=== PATIENT | female | born 1995 | race Caucasian/White ===

== ENCOUNTER 2023-07-02 11:28 | Outpatient (CLI) | payer OTHER, SELFPAY ==
--- NOTE | ~2023-07-02 | XR_ITS ---
EXAMINATION: XR hysterosalpingogram DATE: 07/02/2023 12:18 INDICATION: Infertility. TECHNIQUE: Fluoroscopy was performed by the radiologist during contrast infusion into the endometrial cavity of the uterus by the primary physician. Fluoroscopy exposure time was 0.4 minutes. The total number of images was 5. FINDINGS: The intrauterine cavity is normal in morphology. The fallopian tubes are normal in caliber. There is normal free intraperitoneal spillage of contrast on either side. IMPRESSION: 1. Normal hysterosalpingogram.. Reviewed, dictated and finalized at location A.
== END 2023-07-02 11:29 | disposition home or self-care (01) ==
LOC: ANHIMG 11:43
PROVIDERS: Visit Provider Obstetrics & Gynecology
DX: N97.9 Female infertility, unspecified (principal)
CPT/HCPCS: 58340; 74740; Q9966

== ENCOUNTER 2023-12-22 16:00 | Outpatient (CLI) | payer OTHER, SELFPAY ==
[2023-12-22 17:27] LABS: Beta HCG Quantitative 5.29 mIU/ML
[2023-12-26 07:49] LABS: Progesterone 0.5 ng/mL (***)
== END 2023-12-22 16:01 | disposition home or self-care (01) ==
LOC: ANHLAB 16:02
PROVIDERS: Visit Provider Obstetrics & Gynecology
DX: O20.0 Threatened abortion (principal)
CPT/HCPCS: 36415; 84144; 84702

== ENCOUNTER 2023-12-24 09:32 | Outpatient (CLI) | payer OTHER, SELFPAY ==
[2023-12-24 10:44] LABS: Beta HCG Quantitative < 2.39 mIU/ML
== END 2023-12-24 09:33 | disposition home or self-care (01) ==
LOC: ANHLAB 09:34
PROVIDERS: Visit Provider Obstetrics & Gynecology
DX: O20.0 Threatened abortion (principal); Z3A.00 Weeks of gestation of pregnancy not specified
CPT/HCPCS: 36415; 84702

== ENCOUNTER 2024-06-16 15:27 | Outpatient (CLI) | payer OTHER, SELFPAY ==
[2024-06-16 17:00] LABS: Thyroid Stimulating Hormone 0.908 uIU/mL (0.465-4.680)
[2024-06-23 16:38] LABS: Anti Mullerian Hormone,Female 3.58 ng/mL (0.69-13.39)
== END 2024-06-16 15:28 | disposition home or self-care (01) ==
PROVIDERS: PCP Emergency Medicine
DX: N96 Recurrent pregnancy loss (principal); Z13.29 Encounter for screening for other suspected endocrine disorder
CPT/HCPCS: 36415; 84443; 86146

== ENCOUNTER 2025-04-06 00:20 | Day surgery (SDC) | payer OTHER, SELFPAY ==
[2025-03-27 10:18] VITALS: BMI 21.9
--- NOTE | 2025-03-27 10:25 | PC.NURSE ---
Report to the Outpatient Waiting Room, entrance under the green pavilion located off [facility], at time _0730_ on date _[id number]_. Planned Procedure Time: _0930_. Time changes happen often and if your time is changed the preop area will call you the afternoon before. - You and your visitor will be asked to self-screen and do not enter if you have any COVID symptoms. Please call surgeon if you need to reschedule. - A mask is optional within the hospital at this time. Patients may have clear liquids (water, carbonated beverages, clear teas, apple juice) until 3 hours prior to surgery with a maximum of 20 ounces. - No food from midnight until time of surgery and no smoking, or chewing tobacco (or any form of nicotine). No chewing gum, candy or mints. Take only the following medications with a SIP of water on the morning of surgery: __None___ DO NOT STOP ANY OF YOUR OTHER PRESCRIPTION MEDICATIONS PRIOR TO SURGERY EXCEPT THE FOLLOWING Hold all vitamins and supplements for 3 days per anesthesiologist. Medications to discontinue per physician Date to take last dose Please no make-up, nail cymro, hairspray, perfume, deodorant, or body powder the day of surgery. No jewelry (including any body piercings) or valuables the day of surgery, leave them at home. Please take a shower or bath the night before, or the morning of, surgery with an antibacterial soap. Wear comfortable, loose fitting clothing. - Jewelry must be removed prior to entering the operating room. Rings and piercings that are not removed may be cut off. - The hospital will not accept responsibility for valuables. - Please leave all valuables, including medications, at home the day of surgery. If you are going home after surgery, a licensed class a regional truck driver must drive you home. - NO public transportation without another adult if you receive anesthesia. - We recommend that an adult stay with you for 24 hours following discharge. - We also recommend that you do not drive, make important decision, drink alcoholic beverages, or take any drugs that were not prescribed by your health care provider for at least 24 hours after your discharge time. Follow any additional instructions given to you from your surgeon. Telephone instructions given to __gie__and asked if any additional questions and then verbalized understanding. Patient advised to call surgeon office or pre surgery nurse liaison [phone] if any additional questions.
[2025-04-06] VITALS (7 sets, daily range): BP systolic 106–115; BP diastolic 70–83; PULSE 67–94; RESP 11–14; TEMP 36.3–36.6; O2SAT 99–100
--- OUTSIDE RECORDS SUMMARY | 2025-04-06 00:22 | XMS_ITS | Clinical Summary ---
Author Organization [facility] Address [address] [place] [address] Care Team Providers Care Oracle Analyst Name Role Phone Unavailable Primary Care Provider Unavailabl e Social History Tobacco Use Types Packs/Day Years Used Date Smoking Tobacco: Never Assessed Comments Unknown Sex and Gender Information Value Date Recorded Sex Assigned at Not on file Legal Sex Female 12:44 PM SEAMAN OFFICER Gender Identity Not on file Sexual Orientation Not on file Plan of Treatment Health Maintenance Due Date Last Done Comments Hepatitis C Virus (HCV) Screening 1996 TdaP Immunization 1996 Hepatitis B Immunization (1 of 3 - 19+ 3-dose series) 2015 Pap Smear 2017 Influenza Immunization (#1) 2024 SARS-COV-2 Immunization ( season) 2024 Respiratory Syncytial Virus (RSV) Immunization (Adult) (1 - 1-dose 75+ series) 2071 Meningococcal Immunization (ACWY) Aged Out No longer eligible based on patient's age to complete this topic Pneumococcal Immunization Combined Aged Out No longer eligible based on patient's age to complete this topic Rotavirus Immunization Aged Out No lo nger eligible based on patient's age to complete this topic Insurance [employer] on file
--- OUTSIDE RECORDS SUMMARY | 2025-04-06 00:22 | XMS_ITS | Encounter Summary ---
Author Organization [facility] Address 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
--- OUTSIDE RECORDS SUMMARY | 2025-04-06 00:22 | XMS_ITS | Encounter Summary ---
Author Organization [facility] Address [address] [place] [address] Care Team Providers Care Web User Experience Strategist Name Role Phone Bruce Brito DO Primary Care Provider [phone] Encounter Details Date Type Department Care Team (Late st Contact Info) Description 09/22/1998 Outpatient Historical [facility] Pediatric[facility] [place] [address] [facility] [place] [address] Spenser Gaytan MD NO ADDRESS ON FILE Social History Tobacco Use Types Packs/Day Years Used Date Smoking Tobacco: Never Assessed Comments Unknown Sex and Gender Information Value Date Recorded Sex Assigned at Not on file 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
--- OUTSIDE RECORDS SUMMARY | 2025-04-06 00:22 | XMS_ITS | Clinical Summary ---
Author Organization [employer] [facility] Address [address] [place] [address] [place] [address] Phone Care Team Providers Care Chemist Assistant Name Role Phone BritoBruce Cheri FRAIRE Primary Care Provider [phone] Allergies No known active allergies Medications Lo Loestrin Fe 1 mg-10 mcg (24)/10 mcg (2) Tablet per tablet TAKE 1 TABLET BY MOUTH DAILY 28 Tablet 0 Active White- Dihydroergotamine 10/Caffeine 30 mg capsule compoundIndications:C hronic migraine Take 1 capsule by mouth three times daily with food as needed for migraine. Limit use to 2 days per week. 24 Capsule 11/09/2020 2:53 PM FARM MACHINE TENDER 0 Active Active Problems Problem Noted Date Diagnosed Date Gastroesophageal reflux disease 03/12/2018 Migraine 08/14/2015 Immunizations Immunization Administration Dates Next Due (ADACEL/BOOSTRIX)(10 YR UP) TDAP VACCINE, 0.5ML, IM 07/30/2016 (GARDASIL 9)(9-45 YRS) HUMAN PAPILLOMAVIRUS VACCINE, TYPES 6, 11, 16, 18, 31, 33, 45, 52, 58, NONAVALENT (9VHPV), 2 OR 3 DOSE, IM 10/19/2019 (HAVRIX/VAQTA)(19 YRS UP) HE PATITIS A VACCINE ADULT DOSAGE 1 ML IMM 10/19/2019 (INFANRIX)(6 WKS-6 YRS) DIPT HERIA, TETANUS TOXOIDS, AND ACCELLULAR PERTUSSIS VACCINE (DTAP), 0.5 ML IM 02/21/1998,02/16/1997,1996,09/27 (M-M-R II/PRIORIX)(12 MO UP) MEASLES, MUMPS AND RUBELLA VIRUS VACCINE, 0.5 ML IM/SUBCUT 01/16/2017,01/12/2017(Deferred: Other (See comments) - Patient going to pharmacy),01/31/1998 (VARIVAX)(12 MOS UP)VARICELL A VIRUS VACCINE (PF) 0.5 ML, SUB CUT 01/31/1998 HIB, Unspecified Formulation 02/21/1998, 02/16/1997,1996,09/27 Hepatitis B Vaccine 02/21/1998,1996,1995 INFLUENZA VACCINE QUADRIVALE NT 6 MOS UP PF IM 09/07/2019 Influenza Seasonal Unspecifi ed Formulation IM 07/30/2016,08/27/2015 Meningococcal ACWY Vaccine, Unspecified Formulation 01/16/2017 Poliovirus Vaccine Live Oral 02/16/1997,12/13/18 97,1996 Skin Test TB 07/08/2017 Family History Medical History Relation Name Comments Hypertension Father Michael Horner Alzheimer's Disease Maternal Grandfather Nii Ramos Parkinson's Disease Maternal Grandfather Nii Ramos Migraines Maternal Grandmother Grandma Migraines Mother Kailee Horner Diabetes Paternal Grandfather Siri Migraines Sister Tessa Horner Breast Cancer Neg Hx Colon Cancer Neg Hx Melanoma Neg Hx Ovarian Cancer Neg Hx Relation Name Status Comments Father Michael Horner Alive Maternal Grandfather Nii Ramos Maternal Grandmother Grandma Mother Kailee Horner Alive Paternal Grandfather Siri Sister Tessa Horner Alive Social History Tobacco Use Types Packs/Day Years Used Date Smoking Tobacco: Never Smokeless Tobacco: Never Alcohol Use Standard Drinks/Week Comments No 0 (1 standard drink = 0.6 oz pur e alcohol) Comments No Sex and Gender Information Value Date Recorded Sex Assigned at Not on file Legal Sex Female 4:55 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02 11/09/2020 12:52 PM FARM MACHINE TENDER Plan of Treatment Health Maintenance Due Date Last Done Comments HPV/Cotest (21-29) 2017 HPV VACCINES (2 - 3-dose series) 11/16/2019 10/19/20 19 CERVICAL CANCER SCREENING 11/08/2023 PAP SMEAR 11/08/2023 11/08/2020, 02/21, 03/07/2019 INFLUENZA VACCINE (#1) 2024 9, 07/30/2016, 08/27/2015 Preventative Visit- Commercial 11/23/2024 1 01/09/2020, 10/19/2019, 03/07/2019, Additional history exists DTAP/TDAP/TD VACCINES (6 - T d or Tdap) 07/30/2026 07/30/2016, 02/21/1998, 02/16/1997, Additional history exists HEPATITIS B VACCINES Completed 02/21/1998, 1996, 1996 CHLAMYDIA SCREENING (ANNUAL) 11-24 YEARS Discontinued 11/08/2020, 03/07/2019, 03/07/2019 Procedures Procedure Name Priority Date/Time Associated Diagnosis Comments CHLAMYDIA AND GC, PAP VIAL Routine 11/08/2020 1:47 PM FARM MACHINE TENDER Well woman exam with routine gynecological exam CERV/VAG CYTO AGE BASED SCREEN PAP Routine 11/08/2020 1:47 PM FARM MACHINE TENDER Well woman exam with routine gynecological exam from Last 3 Months or Most Recently Relevant to Health Maintenance Results * CERV/VAG CYTO AGE BASED SCREEN PAP (11/08/2020 1:47 PM FARM MACHINE TENDER) COMMENT (PAP): SEE COMMENT 0 8:14 AM FARM MACHINE TENDER [facility] Comment: This order for age-based cervical cancer and STI screening follows ACOG guidelines(PB 168, 140, EBV387). See individual assays for performing site location. CLINICAL INFORMATION Information not provided 11/12/2020 8:14 AM FARM MACHINE TENDER [facility] LAST MENSTRUAL PERIOD Information not provided 11/12/2020 8:14 AM FARM MACHINE TENDER [facility] PREV PAP: Information not provided 11/12/2020 8:14 AM FARM MACHINE TENDER [facility] PREV BX: Information not provided 11/12/2020 8:14 AM FARM MACHINE TENDER [facility] SOURCE Endocervix 11/12/2020 8:14 AM FARM MACHINE TENDER [facility] ADEQUACY: SEE COMMENT 11/12/2020 8:14 AM FARM MACHINE TENDER [facility] Comment: Satisfactory for evaluation. Endocervical/transformation zone component present. Age and/or menstrual status not provided PAP INTERP Negative for intraepithelial lesion or malignancy. 11/12/2020 8:14 AM FARM MACHINE TENDER [facility] COMMENT This Pap test has been evaluated with computer assisted technology. 11/12/2020 8:14 AM FARM MACHINE TENDER [facility] ESTIMATOR PAPERBOARD BOXES: SEE COMMENT 2019 8:14 AM FARM MACHINE TENDER [facility] Comment: CECILIO CT(ASCP) CT screening location: [place] [address] [place] [address] EXPLANATORY NOTE SEE COMMENT 020 8:14 AM FARM MACHINE TENDER [facility] Comment: EXPLANATORY NOTE: The Pap is a screening test for cervical cancer. It is not a diagnostic test and is subject to false negative and false positive results. It is most reliable when a satisfactory sample, regularly obtained, is submitted with relevant clinical findings and history, and when the Pap result is evaluated along with historic and current clinical information. Genital SWAB OF ENDOCERVIX / Unknown Collection / Unknown 11/08/2020 1:47 PM FARM MACHINE TENDER 11/08/2020 3:28 PM FARM MACHINE TENDER Narrative [facility] - 11/12/2020 8:14 AM FARM MACHINE TENDER Performing Organization Information: Site ID: [id number] Name: [employer] Address: [address] [place] [address] Director: Giselle Pascual Vineet Galdamez MD PATHOLOGY/CYTOLOGY ORDERABLES Final Result Performing Organization Address [facility]/ZIP Co de Phone Number [facility] [phone] * CHLAMYDIA AND GC, PAP VIAL (11/08/2020 1:47 PM FARM MACHINE TENDER) C TRAC RNA NOT DETECTED NOT DETECTED 11/12/2020 8:14 AM FARM MACHINE TENDER [facility] N.GONORRHOEAE RNA, TMA NOT DETECTED NOT DETECTED 11/12/2020 8:14 AM FARM MACHINE TENDER [facility] COMMENT SEE COMMENT 11/12/2020 8:14 AM FARM MACHINE TENDER [facility] Comment: The analytical performance characteristics of this assay, when used to test SurePath(TM) specimens have been determined by [employer] The modifications have not been cleared or approved by the FDA. This assay has been validated pursuant to the CLIA regulations and is used for clinical purposes. For additional information, please refer to https://education.[employer]/faq/ISV399 (This link is being provided for information/ educational purposes only.) Genital SWAB OF ENDOCERVIX / Unknown Collection / Unknown 11/08/2020 1:47 PM FARM MACHINE TENDER 11/08/2020 3:28 PM FARM MACHINE TENDER Narrative [facility] - 11/12/2020 8:14 AM FARM MACHINE TENDER Performing Organization Information: Site ID: [id number] Name: [employer] Address: [address] [place] [address] Director: Ammon Smyth D.O., MPH Performing Organization Information: Site ID: [id number] Name: [employer] Address: [address] [place] [address] Director: Ammon Smyth D.O., MPH Vineet Galdamez MD BODY FLUIDS AND STOOLS COM Ed ited Result - Final Performing Organization Address City/[facility]/ZIP Co de Phone Number [facility] [phone] from Last 3 Months or Most Recently Relevant to Health Maintenance Insurance BCBS BLUE ACCESS/TRUE BLUE PPO RX [facility] RX [place] Commercial RX [employer] Express RX [employer] [facility] Express RX [place] Commercial RX [facility] Care Teams Chemist Assistant Relationship Specialty Start Date End Date Bruce Brito DO PCP - General Family Practice 06/20/10
--- OUTSIDE RECORDS SUMMARY | 2025-04-06 00:22 | XMS_ITS | Encounter Summary ---
Author Organization [employer] Address 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
--- OUTSIDE RECORDS SUMMARY | 2025-04-06 00:22 | XMS_ITS | Encounter Summary ---
Author Organization [facility] Address [address] [place] [address] Care Team Providers Care Fruit Loader Machine Operator Name Role Phone Bruce Brito DO Primary Care Provider [phone] Encounter Details Date Type Department Care Team (Late st Contact Info) Description 01/05/1999 Outpatient Historical [facility] Pediatric[facility] [place] [address] [facility] [place] [address] Spenser Gaytan MD NO ADDRESS ON FILE Social History Tobacco Use Types Packs/Day Years Used Date Smoking Tobacco: Never Assessed Comments Unknown Sex and Gender Information Value Date Recorded Sex Assigned at Not on file Legal Sex Female 4:55 AM RODEO PERFORMER Gender Identity Not on file Sexual Orientation Not on file documented as of this encounter Plan of Treatment Not on file documented as of this encounter Visit Diagnoses Not on filedocumented in this encounter Care Teams Fruit Loader Machine Operator Relationship Specialty Start Date End Date Bruce Brito DO PCP - General Family Practice 06/20/10 documented as of this encounter
--- OUTSIDE RECORDS SUMMARY | 2025-04-06 00:22 | XMS_ITS | Encounter Summary ---
Author Organization [facility] Address [address] [place] [address] Care Team Providers Care Cathode Ray Tube Salvage Processor Name Role Phone Bruce Brito DO Primary Care Provider [phone] Encounter Details Date Type Department Care Team (Late st Contact Info) Description 08/17/1998 Outpatient Historical [facility] [place] [address] [facility] [place] [address] Spenser Gaytan MD NO ADDRESS ON FILE Social History Tobacco Use Types Packs/Day Years Used Date Smoking Tobacco: Never Assessed Comments Unknown Sex and Gender Information Value Date Recorded Sex Assigned at Not on file 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
--- OUTSIDE RECORDS SUMMARY | 2025-04-06 00:23 | XMS_ITS | Encounter Summary ---
Author Organization [facility] Address [address] [place] [address] Care Team Providers Care Cash Register Servicer Name Role Phone Bruce Brito DO Primary Care Provider [phone] Encounter Details Date Type Department Care Team (Late st Contact Info) Description 08/30/2019 Specialty Pharmacy [facility] [address] [address] [place] Social History Tobacco Use Types Packs/Day Years Used Date Smoking Tobacco: Never Smokeless Tobacco: Never Alcohol Use Standard Drinks/Week Comments No 0 (1 standard drink = 0.6 oz pur e alcohol) Comments No Sex and Gender Information Value Date Recorded Sex Assigned at Not on file 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
--- OUTSIDE RECORDS SUMMARY | 2025-04-06 00:23 | XMS_ITS | Clinical Summary ---
Author Organization [facility] Address [address] [place] [address] Care Team Providers Care Bi Tester Name Role Phone No, Physician Primary Care Provider [phone] Jeancarlos Brito DO Unavailable [phone] Spenser Mendenhall MD Unavailable [phone] Allergies No known active allergies Medications No known medications Active Problems No known active problems Surgical History Surgery Date Site/Laterality Comments APPENDECTOMY 11/23/2014 - 11/22/2015 Medical History Medical History Date Comments Ovarian cyst Generalized headaches Tinnitus Migraines Family History Medical History Relation Name Comments Endometriosis Sister Relation Name Status Comments Sister Social History Tobacco Use Types Packs/Day Years Used Date Smoking Tobacco: Never Tobacco Cessation:Counseling Given: Not Answered AUDIT-C Answer Date Recorded Q1: How often do you have a drink containing alcohol? Never 05/12/2023 Q2: How many drinks containi ng alcohol do you have on a typical day when you are drinking? Patient does not drink Q3: How often do you have si x or more drinks on one occasion? Never 05/12/2023 Comments No Sex and Gender Information Value Date Recorded Sex Assigned at Female 05/12/2023 9:59 AM CDT Legal Sex Female 10:02 AM CDT Gender Identity Female 05/12/2023 9:59 AM CDT Sexual Orientation Not on file Obstetrics History Last Filed Vital Signs Vital Sign Reading Time Taken Comments Blood Pressure 109/74 12/30/2024 8:22 AM SPEECH AND LANGUAGE TUTOR Pulse 93 12/30/2024 8:22 AM SPEECH AND LANGUAGE TUTOR Temperature - - Respiratory Rate - - Oxygen Saturation - - Inhaled Oxygen Concentration - - Weight 65.3 kg (144 lb) 12/30/2024 8:22 AM SPEECH AND LANGUAGE TUTOR Height 170.2 cm (5' 7 ) 12/30/2024 8:22 AM SPEECH AND LANGUAGE TUTOR Body Mass Index 22.55 12/30/2024 8:22 AM SPEECH AND LANGUAGE TUTOR Plan of Treatment Health Maintenance Due Date Last Done Comments Cervical Cancer Screening 1996 Depression Screening 1996 Hepatitis C Screening 1996 Varicella Vaccines (2 of 2 - 2-dose childhood series) 2000 01/31/1998 Regular Well Visit/Exam 18-64 2014 Covid-19 Vaccine ( season) 2024 12/05/2021, 01/09/2021, 12/19/2020 Influenza Vaccine (Season Ended) 2025 09/07/2019, 07/30/2016, 08/27/2015 DTaP/Tdap/Td Vaccine (7 - Td or Tdap) 07/30/2026 07/30/2016, 08/20/2001, 02/21/1998, Additional history exists Hepatitis B Screening Completed 08/20/2001 , 02/21/1998, 1996, Additional history exists HPV Vaccines Aged Out No longer eligi ble based on patient's age to complete this topic Pneumococcal vaccine <65 Aged Out No longer eligible based on patient's age to complete this topic Insurance [facility] AETNA SIGNATURE [facility] AETNA SIGNATURE Care Teams Bi Tester Relationship Specialty Start Date End Date No, Physician PCP - General 04/30/23 Jeancarlos Brito DO [address] [place] [address] [facility] [address] [place] [address] 04/30/23 Spenser Mendenhall MD [address] [address] Referring Physician Obstetrics and Gynecology 04/30/23
--- OUTSIDE RECORDS SUMMARY | 2025-04-06 00:23 | XMS_ITS | Clinical Summary ---
Author Organization [facility] [employer] Address [address] [place] [address] Care Team Providers Care Office Machines Sales Representative Name Role Phone Unavailable Primary Care Provider Unavailabl e Source Comments [facility] [employer],non-owned Affiliates and Associated Physician Practices is amultiple site organization consisting of ambulatory clinics and hospital sitesin [place], [place], [place] and [place]. This disclosure is being madepursuant to the Care Everywhere program and may not contain all information available regarding this patient. 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 Gender Identity Not on file Sexual Orientation Not on file Plan of Treatment Health Maintenance Due Date Last Done Comments HIV SCREENING 2011 HEPATITIS C SCREENING 07/22/2014 DTAP/TDAP/TD VACCINES (1 - Tdap) 2015 HEPATITIS B VACCINE (1 of 3 - 19+ 3-dose series) 2015 COVID-19 VACCINE (3 - 2023-2 5 season) 2024 01/09/2021, 12/19/2020 DEPRESSION SCREENING 11/23/2024 INFLUENZA VACCINE (Season Ended) 2025 ZOSTER VACCINE (1 of 2) 2046 HIB VACCINE Aged Out No longer eligi ble based on patient's age to complete this topic HPV VACCINE Aged Out No longer eligi ble based on patient's age to complete this topic MENINGOCOCCAL (Group B) VACCINE SHARED DECISION-MAKING Aged Out No longer eligible based on patient's age to complete this topic MENINGOCOCCAL GROUPS A/C/Y/W VACCINE Aged Out No longer eligible b ased on patient's age to complete this topic PNEUMOCOCCAL VACCINE Aged Out No long er eligible based on patient's age to complete this topic
--- OUTSIDE RECORDS SUMMARY | 2025-04-06 00:23 | XMS_ITS | Referral Summary ---
Author Organization [facility] Address [address] [place] [address] Care Team Providers Care Support Services Rep Name Role Phone No, Physician Primary Care Provider [phone] Jeancarlos Brito DO Unavailable [phone] Spenser Mendenhall MD Unavailable [phone] Allergies No known active allergies Medications No known medications Active Problems No known active problems Social History Tobacco Use Types Packs/Day Years [...] AM CDT Sexual Orientation Not on file Last Filed Vital Signs Vital Sign Reading Time Taken Comments Blood Pressure 109/74 12/30/2024 8:22 AM CAREER PROFESSIONAL Pulse 93 12/30/2024 8:22 AM CAREER PROFESSIONAL Temperature - - Respiratory Rate - - Oxygen Saturation - - Inhaled Oxygen Concentration - - Weight 65.3 kg (144 lb) 12/30/2024 8:22 AM CAREER PROFESSIONAL Height 170.2 cm (5' 7 ) 12/30/2024 8:22 AM CAREER PROFESSIONAL Body Mass Index 22.55 12/30/2024 8:22 AM CAREER PROFESSIONAL Plan of Treatment Not on file Insurance [facility] AETNA SIGNATURE [facility] AETNA SIGNATURE Care Teams Support Services Rep Relationship Specialty Start Date End Date No, Physician PCP - General 04/30/23 Jeancarlos Brito DO [address] [facility] [address] [place] [address] 04/30/23 Spenser Mendenhall MD [address] [address] Referring Physician Obstetrics and Gynecology 04/30/23
--- NOTE | 2025-04-06 06:43 | P.PNAN_ITS ---
Anes - Initial Pre Proc Eval Procedure: Operation Date: 04/06/25 07:30 Proposed Procedures p Tonsillectomy - Edy Banks MD Date/Time: 04/06/25 06:43 Surgeon: Edy Banks MD Pre Op Diagnosis: chronic tonsillitis Patient Data Age: 29 Gender: F Height: 1.7 m Weight: 63.6 kg Allergies Allergy/AdvReac Type Severity Reaction Status Date / Time No Known Allergies Allergy Verified 03/27/25 10:17 Home Medications Medication Instructions Recorded Confirmed Type No Home Medications 03/27/25 03/27/25 History Patient hx anesthesia problems: none Family hx anesthesia problems: none Results Review: All pre-operative results and documents have been reviewed as part of the pre- operative evaluation. 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 Smoking status: Never smoker Second hand tobacco smoke exposure: No Alcohol intake: never Substance use: never Substance use type: does not use Do You Feel Safe in your Home?: Yes Lack of Transportation: No Lack of Food: Never True Current Housing: I Have Housing Concerned About Future Housing: No Difficulty Paying Gas/Electric Bills: No Difficulty Paying for Meds: No Currently Unemployed: No Education: Master's Degree or Higher Difficulty w/ Childcare or Family Care: No Living arrangements: with family Additional living arrangements comments: with spouse Occupation/Education: occupation 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 Gender identity (if verbalized by the patient): Female Sexual Orientation (if Verbalized by the Patient): Straight or Heterosexual Spiritual care concerns: No Agree to blood products: No Anes - Eval Final PreProcedure Day of Procedure 04/06/25 06:43 Patient weight: normal Heart: regular rate and rhythm Lungs: clear to auscultation Airway: Mallampati scale class II Neurological: alert and oriented Last oral intake: >/= 8 hours ASA classification: I Emergent: no Anesthetic plan: proceed Anesthesia type and monitoring: general ETT and standard monitoring Results Review: All pre-operative results and documents have been reviewed as part of the pre- operative evaluation. Informed Consent: The patient's anesthetic plan and its attendant risks and benefits were discussed with the patient/family/POA. Questions were solicited and answers provided to the satisfaction of the patient/family/POA.
[2025-04-06] MEDS: LACTATED RINGERS 1,000 ML 30 ML IV CONT ×2 (07:00→09:37)
[2025-04-06] MEDS: ACETAMINOPHEN 500 MG TABLET 1000 MG PO (07:00)
--- NOTE | 2025-04-06 07:22 | WPDHPUPDATE1 ---
History and Physical Update Update Date/Time: 04/06/25 07:22 History and Physical has been reviewed, including an updated exam of the patient. There are NO changes in the patient's condition. Risks, benefits, and alternatives have been discussed and questions answered. Patient agrees to proceed with procedure.
--- NOTE | 2025-04-06 07:27 | P.HP_ITS ---
H&P: HPI History of Present Illness Date/Time: 04/06/25 07:27 Chief Complaint: Recurrent tonsillitis at least 3 episodes of strep positive tonsillitis per year redness is set to assess stating these antibiotics peer year necessitating the use of antibiotics. [facility] Past Medical History Medical History Chronic tonsillitis Cryptic tonsil Headache, migraine Surgical History Surgical History History of appendectomy Family History Family History Sibling Asthma Depression Grandparent Diabetes mellitus Social History Social History Social History: caffeine- coffee Smoking status: Never smoker Second hand tobacco smoke exposure: No Alcohol intake: never Substance use: never Substance use type: does not use Do You Feel Safe in your Home?: Yes Lack of Transportation: No Lack of Food: Never True Current Housing: I Have Housing Concerned About Future Housing: No Difficulty Paying Gas/Electric Bills: No Difficulty Paying for Meds: No Currently Unemployed: No Education: Master's Degree or Higher Difficulty w/ Childcare or Family Care: No Living arrangements: with family Additional living arrangements comments: with spouse Occupation/Education: occupation 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 Assessment and Plan Assessment and plan (1) Recurrent tonsillitis: Code(s): J03.91 - Acute recurrent tonsillitis, unspecified Status: Acute Assessment and Plan: Recurrent on chronic tonsillitis plan OR tonsillectomy risks were discussed bleeding infection damage to on structures need further procedures change in taste change in swallow could be permanent postoperative bleeding 3-5% time off work time off school tongue swelling tongue numbness can be permanent time off work time off school inherent risk of narcotic use patient voiced understanding of these risks and agreed. (2) Chronic tonsillitis: Code(s): J35.01 - Chronic tonsillitis Status: Acute
[2025-04-06 07:36] LABS: BEDSIDEPREGUCG Negative (Negative)
[2025-04-06] MEDS: SCOPOLAMINE 1 MG PATCH 1 PATCH TRANSDERM (07:40)
[2025-04-06] MEDS: ONDANSETRON INJ 4 MG/2 ML VIAL IV PUSH (07:43)
[2025-04-06] MEDS: FAMOTIDINE 20 MG/2 ML VIAL IV PUSH (07:43)
--- NOTE | 2025-04-06 08:47 | SUR.OPER ---
0845-This RN updated pt's family.
[2025-04-06] MEDS: OXYMETAZOLINE HCL 0.05% NAS 15 ML BTL (*BKC) 1 SPRAY NASAL (09:02)
[2025-04-06] MEDS: SODIUM CHLORIDE 0.9% IV 50 ML, TRANEXAMIC ACID 1,000 MG TOPICAL (09:04)
--- NOTE | 2025-04-06 09:52 | P.OP_ITS ---
Procedure Note - Detailed Date of Procedure 04/06/25 Pre-op Diagnosis chronic tonsillitis, recurrent tonsillitis Post-op Diagnosis Same Procedure Performed Tonsillectomy Surgeon Edy Banks MD Anesthesia General Indications See above Findings Incredibly endophytic scarred in tonsils left-sided formal extracapsular tonsillectomy complicated by small injury to 1 of the artery supplying the tonsil via small defect in the pharyngeal musculature right-sided about 50% was extracapsular 50% was intracapsular as again there was an artery stuck to the capsule that I did not want to violate. Given how scarred in they were and endophytic. Description of Procedure Patient identified consent verified in the preoperative holding area. The patient brought to the operating room time-out was performed. General anesthe phil induced endotracheal tube secured airway. Patient prepped draped position procedure confirmed 2nd time-out performed. McIvor mouth gag inserted. Left tonsil grabbed with curved Allis scope later utilized extracapsular dissection was proceeding on medium setting without complication, high quite literally had to peel in burn the pharyngeal musculature off the capsule as it was so scarred in. A very small defect about 2 x 3 mm was created in the pharyngeal muscle and in artery lived behind that defect. Bleeding was easily controlled by pressure. When the bleeding stopped I grabbed the tip of the artery and through to 3-0 excuse me 2 4-0 Vicryl sutures around the artery and to close the muscular defect. Prior to this I placed a very small amount of Gelfoam soaked in TXA in the defect over the artery the artery was slightly cauterized as well. No bleeding was encountered after that care was then turned attention was then turned to the right tonsil. Extracapsular dissection was performed until the artery was seen deep to the pharyngeal tissue at this point I did stop doing extracapsular and converted to an intracapsular over that small portion over the scarred in artery. So the right side is about 50% intracapsular 50% extracapsular. But all visible tonsil tissue was removed. In-between tonsils McIvor mouth gag was lowered reopened allow blood flow to return to the tongue. At no point did she have her tongue suspension for greater than 20 minutes. After the procedure we Valsalva and no bleeding ensued care the patient was gut turned over to Anesthesiology McIvor mouth gag removed I performed all dictated portions procedure blood loss was about 15 cc the. Patient tolerated the procedure well. Estimated Blood Loss 15 Drains No Packing Yes (1 x 2 mm piece of Gelfoam soaked in TXA) Pathology Yes Complications Other complications (Small defect left pharyngeal musculature leading to but 10- 15 cc of arterial bleeding. What appeared to be arterial bleeding controlled with ligation.) Condition Stable Disposition PACU [facility] Billing Surgery - Charge Forward: Surgery Billing
[2025-04-06] MEDS: oxyCODONE HCL (*CRX) 5 MG TAB IR PO (10:32)
--- NOTE | 2025-04-06 10:32 | SUR.OPER ---
Noted upon induction, pt had an earring in left ear. No consent signed, tape placed over earring. No injury noted after surgery.
== END 2025-04-06 11:15 | disposition home or self-care (01) ==
PROVIDERS: Visit Provider Otolaryngology
PROC: (CPT 42826; principal; 2025-04-06 07:30)
DX: J35.01 Chronic tonsillitis (principal); G89.18 Other acute postprocedural pain; Z98.890 Other specified postprocedural states
CPT/HCPCS: 42826; 88302; A9270; J1100; J2003; J2250; J2405; J2704; J3010; J7050; J7120

== ENCOUNTER 2025-04-13 17:33 | Day surgery (SDC) | payer OTHER, SELFPAY ==
[2025-04-13] VITALS (8 sets, daily range): BP systolic 100–136; BP diastolic 67–88; PULSE 71–116; RESP 12–21; TEMP 36.2–36.7; O2SAT 94–100
--- OUTSIDE RECORDS SUMMARY | 2025-04-13 17:35 | XMS_ITS | Encounter Summary ---
Author Organization [facility] Address [address] [place] [address] Care Team Providers Care Shelver Name Role Phone Bruce Brito DO Primary Care Provider [phone] Encounter Details Date Type Department Care Team (Late st Contact Info) Description 05/13/1999 Outpatient Historical [facility] [place] [address] [address] Spenser Gaytan MD NO ADDRESS ON FILE Social History Tobacco Use Types Packs/Day Years Used Date Smoking Tobacco: Never Assessed Comments Unknown Sex and Gender Information Value Date Recorded Sex Assigned at Not on file Legal Sex Female 4:55 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
--- OUTSIDE RECORDS SUMMARY | 2025-04-13 17:35 | XMS_ITS | Clinical Summary ---
Author Organization [facility] [employer] Address [address] [place] [address] Care Team Providers Care Paleobotanist Name Role Phone Unavailable Primary Care Provider Unavailabl e Source Comments [facility],non-owned Affiliates and Associated Physician Practices is amultiple site organization consisting of ambulatory clinics and hospital sitesin [place], [place], [place] and [place]. This disclosure is being madepursuant to the Care Everywhere program and may not contain all information available regarding this patient. 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
--- OUTSIDE RECORDS SUMMARY | 2025-04-13 17:35 | XMS_ITS | Clinical Summary ---
Author Organization [facility] Address [address] [place] [address] Care Team Providers Care Copper Flotation Operator Name Role Phone Unavailable Primary Care Provider Unavailabl e Social History Tobacco Use Types Packs/Day Years Used Date Smoking Tobacco: Never Assessed Comments Unknown Sex and Gender Information Value Date Recorded Sex Assigned at Not on file Legal Sex Female 12:44 PM GALLEY STRIPPER Gender Identity Not on file Sexual Orientation [...]
--- OUTSIDE RECORDS SUMMARY | 2025-04-13 17:35 | XMS_ITS | Clinical Summary ---
Author Organization [facility] Address [address] [place] [address] Care Team Providers Care Mechatronics Engineer Name Role Phone No, Physician Primary Care Provider [phone] Jeancarlos Brito DO Unavailable [phone] Spenser Mendenhall MD Unavailable [phone] Allergies No known active allergies Medications No [...] Comments Blood Pressure 109/74 12/30/2024 8:22 AM HOME LIGHTING ADVISER Pulse 93 12/30/2024 8:22 AM HOME LIGHTING ADVISER Temperature - - Respiratory Rate - - Oxygen Saturation - - Inhaled Oxygen Concentration - - Weight 65.3 kg (144 lb) 12/30/2024 8:22 AM HOME LIGHTING ADVISER Height 170.2 cm (5' 7 ) 12/30/2024 8:22 AM HOME LIGHTING ADVISER Body Mass Index 22.55 12/30/2024 8:22 AM HOME LIGHTING ADVISER Plan of Treatment Health Maintenance Due Date [...] patient's age to complete this topic Insurance [facility] AETNA SIGNATURE [facility] AETNA SIGNATURE Care Teams Mechatronics Engineer Relationship Specialty Start Date End Date No, Physician PCP - General 04/30/23 Jeancarlos Brito DO [address] [place] [address] [facility] [address] [place] [address] 04/30/23 Spenser Mendenhall MD [address] [address] Referring Physician Obstetrics and Gynecology 04/30/23
--- OUTSIDE RECORDS SUMMARY | 2025-04-13 17:35 | XMS_ITS | Encounter Summary ---
Author Organization [facility] Address [address] [place] [address] Care Team Providers Care Complaint Manager Name Role Phone Bruce Brito DO Primary Care Provider [phone] Encounter Details Date Type Department Care Team (Late st Contact Info) Description 09/22/1998 Outpatient Historical [facility] Pediatric[facility] [place] [address] [facility] [place] [address] Spenser Gaytan MD NO ADDRESS ON FILE Social History Tobacco Use Types Packs/Day Years Used Date Smoking Tobacco: Never Assessed Comments Unknown Sex and Gender Information Value Date Recorded Sex Assigned at Not on file Legal Sex Female 4:55 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
--- OUTSIDE RECORDS SUMMARY | 2025-04-13 17:35 | XMS_ITS | Continuity of Care Document ---
Author Organization [facility] Address [address] [place] [address] Phone Care Team Providers Care Cafe Cook Name Role Phone Mc PT, SRINIVASAT, Brooks Unavailable Unavailable Procedures Procedure Date Therapeutic Activities Manual Therapy Neuromuscular Re-Ed Therapeutic Activities Neuromuscular Re-Ed PT Evaluation Moderate Complexity Neuromuscular Re-Ed Therapeutic Activities Free Assessment Advance Directives Directive Yes / No Effective Date File Name No Information Encounters Encounter Description Practice Location Reason(s) For Visit Diagnoses Date Provider Providers Copied on Encounter [facility] [place] [address], [place], [place], [id number], tel:[phone] [place] No Information 2 Mc Guy. . [facility], [place], [place], [id number], tel:[phone] [place] No Information 2 Mc Guy. . Referring Provider: Access Direct. [facility] [facility] [facility] [address], [place], [place], [id number], tel:[phone] [place] No Information 2 Mc Guy. . Referring Provider: [facility] Direct. [facility], [place], [place], [id number], tel:[phone] [place] No Information 2 Mc Guy. . Referring Provider: [facility]. [employer] [place], [address], [place], [place], [id number], [place] tel:[phone] [place] No Information 2 Mc Guy. . Referring Provider: Physician Screen. Family History Family Member Type Diagnosis Age At Onset No Information Payers Payer name Insurance type Covered green party ID Ana dunbar(s) [facility] [id number] Social History Type Description Quantity Date Captured Comments Sex Female Smoking Status No Information Chief Complaint And Reason For Visit No Information Reason For Referral Reason For Referral No Information History Of Present Illness Encounter Date Complaint History Of Prese nt Illness No Information Functional Status Date Functional Assessmen t No Information Instructions Date Instruction Additional Infor mation No Information Assessments Type Assessment Date No Information Patient Care Teams Name Effective Dates (start - stop) Status Members No Information
--- OUTSIDE RECORDS SUMMARY | 2025-04-13 17:35 | XMS_ITS | Encounter Summary ---
Author Organization [facility] Address 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
--- OUTSIDE RECORDS SUMMARY | 2025-04-13 17:35 | XMS_ITS | Clinical Summary ---
Author Organization [employer] [facility] Address [address] [place] [address] [place] [address] Phone Care Team Providers Care Natural History Collections Curator Name Role Phone BritoBruce Cheri FRAIRE Primary Care Provider [phone] Allergies No known active allergies Medications Lo Loestrin Fe 1 mg-10 mcg (24)/10 mcg (2) Tablet per tablet TAKE 1 TABLET BY MOUTH DAILY 28 Tablet 0 Active White- Dihydroergotamine 10/Caffeine 30 mg capsule compoundIndications:C hronic migraine Take 1 capsule by mouth three times daily with food as needed for migraine. Limit use to 2 days per week. 24 Capsule 11/09/2020 2:53 PM MUSTANGER 0 Active Active Problems Problem Noted Date [...] on file Legal Sex Female 4:55 AM MUSTANGER Gender Identity Not on file Sexual Orientation Not on file Last Filed Vital Signs Vital Sign Reading Time Taken Comments Blood Pressure 120/68 11/09/2020 12:52 PM MUSTANGER Pulse 80 11/09/2020 12:52 PM MUSTANGER Temperature 36.8 C (98.2 F) 11/09/2020 12:52 PM MUSTANGER Respiratory Rate 16 06/27/2019 7:07 PM CDT Oxygen Saturation 98% 12/22/2019 2:16 PM MUSTANGER Inhaled Oxygen Concentration - - Weight 66.7 kg (147 lb) 11/09/2020 12:52 PM MUSTANGER Height 170.2 cm (5' 7 ) 11/09/2020 12:52 PM MUSTANGER Body Mass Index 23.02 11/09/2020 12:52 PM MUSTANGER Plan of Treatment Health Maintenance Due Date [...] GC, PAP VIAL Routine 11/08/2020 1:47 PM MUSTANGER Well woman exam with routine gynecological exam CERV/VAG CYTO AGE BASED SCREEN PAP Routine 11/08/2020 1:47 PM MUSTANGER Well woman exam with routine gynecological exam from Last 3 Months or Most Recently Relevant to Health Maintenance Results * CERV/VAG CYTO AGE BASED SCREEN PAP (11/08/2020 1:47 PM MUSTANGER) COMMENT (PAP): SEE COMMENT 0 8:14 AM MUSTANGER [facility] Comment: This order for age-based cervical cancer and STI screening follows ACOG guidelines(PB 168, 140, MMJ238). See individual assays for performing site location. CLINICAL INFORMATION Information not provided 11/12/2020 8:14 AM MUSTANGER [facility] LAST MENSTRUAL PERIOD Information not provided 11/12/2020 8:14 AM MUSTANGER [facility] PREV PAP: Information not provided 11/12/2020 8:14 AM MUSTANGER [facility] PREV BX: Information not provided 11/12/2020 8:14 AM MUSTANGER [facility] SOURCE Endocervix 11/12/2020 8:14 AM MUSTANGER [facility] ADEQUACY: SEE COMMENT 11/12/2020 8:14 AM MUSTANGER [facility] Comment: Satisfactory for evaluation. Endocervical/transformation zone component present. Age and/or menstrual status not provided PAP INTERP Negative for intraepithelial lesion or malignancy. 11/12/2020 8:14 AM MUSTANGER [facility] COMMENT This Pap test has been evaluated with computer assisted technology. 11/12/2020 8:14 AM MUSTANGER [facility] VOLTAGE TESTER: SEE COMMENT 2019 8:14 AM MUSTANGER [facility] Comment: CECILIO CT(ASCP) CT screening location: [place] [address] [place] [address] EXPLANATORY NOTE SEE COMMENT 020 8:14 AM MUSTANGER [facility] Comment: EXPLANATORY NOTE: [...] Unknown Collection / Unknown 11/08/2020 1:47 PM MUSTANGER 11/08/2020 3:28 PM MUSTANGER Narrative [facility] - 11/12/2020 8:14 AM MUSTANGER Performing Organization Information: Site ID: SL Name: [facility] Address: [address] [place] [address] Director: Giselle Pascual Vineet Galdamez MD PATHOLOGY/CYTOLOGY ORDERABLES Final Result Performing Organization Address [facility]/ZIP Co de Phone Number [facility] [phone] * CHLAMYDIA AND GC, PAP VIAL (11/08/2020 1:47 PM MUSTANGER) C TRAC RNA NOT DETECTED NOT DETECTED 11/12/2020 8:14 AM MUSTANGER [facility] N.GONORRHOEAE RNA, TMA NOT DETECTED NOT DETECTED 11/12/2020 8:14 AM MUSTANGER [facility] COMMENT SEE COMMENT 11/12/2020 8:14 AM MUSTANGER [facility] Comment: The analytical performance characteristics of this assay, when used to test SurePath(TM) specimens have been determined by [facility]. The modifications have not been cleared or approved by the FDA. This assay has been validated pursuant to the CLIA regulations and is used for clinical purposes. For additional information, please refer to https://education.TheFormTool/faq/PMK625 (This link is being provided for information/ educational purposes only.) Genital SWAB OF ENDOCERVIX / Unknown Collection / Unknown 11/08/2020 1:47 PM MUSTANGER 11/08/2020 3:28 PM MUSTANGER Narrative [facility] - 11/12/2020 8:14 AM MUSTANGER Performing Organization Information: Site ID: VINCENT Name: [facility] Address: [address] [place] [address] Director: Ammon Smyth D.O., MPH Performing Organization Information: Site ID: [place] Name: [facility] Address: [address] [place] [address] Director: Ammon Smyth D.O., MPH Vineet Galdamez MD BODY FLUIDS AND STOOLS COM Ed ited Result - Final Performing Organization Address City/[facility]/ZIP Co de Phone Number [facility] [phone] from Last 3 Months or Most Recently Relevant to Health Maintenance Insurance BCBS BLUE ACCESS/TRUE BLUE PPO RX [facility] RX [place] Commercial RX [employer] Express RX [employer] Express RX [place] Commercial RX [facility] Care Teams Natural History Collections Curator Relationship Specialty Start Date End Date Bruce Brito DO PCP - General Family Practice 06/20/10
--- OUTSIDE RECORDS SUMMARY | 2025-04-13 17:35 | XMS_ITS | Encounter Summary ---
Author Organization [facility] Address [address] [place] [address] Care Team Providers Care Hot Room Attendant Name Role Phone Bruce Brito DO Primary Care Provider [phone] Encounter Details Date Type Department Care Team (Late st Contact Info) Description 08/17/1998 Outpatient Historical [facility] Pediatric[facility] [place] [address] [facility] [place] [address] Spenser Gaytan MD NO ADDRESS ON FILE Social History Tobacco Use Types Packs/Day Years Used Date Smoking Tobacco: Never Assessed Comments Unknown Sex and Gender Information Value Date Recorded Sex Assigned at Not on file Legal Sex Female 4:55 AM PROJECT CONSULTANT Gender Identity Not on file Sexual Orientation Not on file documented as of this encounter Plan of Treatment Not on file documented as of this encounter Visit Diagnoses Not on filedocumented in this encounter Care Teams Hot Room Attendant Relationship Specialty Start Date End Date Bruce Brito DO PCP - General Family Practice 06/20/10 documented as of this encounter
--- OUTSIDE RECORDS SUMMARY | 2025-04-13 17:35 | XMS_ITS | Encounter Summary ---
Author Organization [facility] Address [address] [place] [address] Care Team Providers Care Dance Hall Host/Hostess Name Role Phone Bruce Brito DO Primary Care Provider [phone] Encounter Details Date Type Department Care Team (Late st Contact Info) Description 01/05/1999 Outpatient Historical [facility] [place] [address] [facility] [place] [address] Spenser Gaytan MD NO ADDRESS ON FILE Social History Tobacco Use Types Packs/Day Years Used Date Smoking Tobacco: Never Assessed Comments Unknown Sex and Gender Information Value Date Recorded Sex Assigned at Not on file Legal Sex Female 4:55 AM INDIGO MIXER Gender Identity Not on file Sexual Orientation Not on file documented as of this encounter Plan of Treatment Not on file documented as of this encounter Visit Diagnoses Not on filedocumented in this encounter Care Teams Dance Hall Host/Hostess Relationship Specialty Start Date End Date Bruce Brito DO PCP - General Family Practice 06/20/10 documented as of this encounter
--- OUTSIDE RECORDS SUMMARY | 2025-04-13 17:35 | XMS_ITS | Referral Summary ---
Author Organization [facility] Address [address] [place] [address] Care Team Providers Care Finisher Denture Name Role Phone No, Physician Primary Care Provider [phone] Jeancarlos Brito DO Unavailable [phone] Spenser Mendenhall MD Unavailable [phone] Allergies No known active allergies Medications No [...] Comments Blood Pressure 109/74 12/30/2024 8:22 AM INJECTION MOLDING MACHINE SETTER Pulse 93 12/30/2024 8:22 AM INJECTION MOLDING MACHINE SETTER Temperature - - Respiratory Rate - - Oxygen Saturation - - Inhaled Oxygen Concentration - - Weight 65.3 kg (144 lb) 12/30/2024 8:22 AM INJECTION MOLDING MACHINE SETTER Height 170.2 cm (5' 7 ) 12/30/2024 8:22 AM INJECTION MOLDING MACHINE SETTER Body Mass Index 22.55 12/30/2024 8:22 AM INJECTION MOLDING MACHINE SETTER Plan of Treatment Not on file Insurance [facility] AETNA SIGNATURE [facility] [employer] SIGNATURE Care Teams Finisher Denture Relationship Specialty Start Date End Date No, Physician PCP - General 04/30/23 Jeancarlos Brito DO [place] [address] [facility] [address] [place] [address] 04/30/23 Spenser Mendenhall MD [address] [address] Referring Physician Obstetrics and Gynecology 04/30/23
--- OUTSIDE RECORDS SUMMARY | 2025-04-13 17:35 | XMS_ITS | Encounter Summary ---
Author Organization [facility] Address [address] [place] [address] Care Team Providers Care Channeler Runner Name Role Phone Bruce Brito DO Primary Care Provider [phone] Encounter Details Date Type Department Care Team (Late st Contact Info) Description 08/30/2019 Specialty Pharmacy [facility] [address] [address] [place] Social History Tobacco Use Types Packs/Day Years Used Date Smoking Tobacco: Never Smokeless Tobacco: Never Alcohol Use Standard Drinks/Week Comments No 0 (1 standard drink = 0.6 oz pur e alcohol) Comments No Sex and Gender Information Value Date Recorded Sex Assigned at Not on file Legal Sex Female 4:55 AM REGULATORY AND COMPLIANCE TECHNICIAN Gender Identity Not on file Sexual Orientation Not on file documented as of this encounter Plan of Treatment Not on file documented as of this encounter Visit Diagnoses Not on filedocumented in this encounter Care Teams Channeler Runner Relationship Specialty Start Date End Date Bruce Brito DO PCP - General Family Practice 06/20/10 documented as of this encounter
--- NOTE | 2025-04-13 17:38 | ED.GENADULT ---
HPI - General Adult General Chief complaint: Unspecified <Rosy Howell PA-C - Last Filed: 04/13/25 17:51> Stated complaint: 04/06 tonsillectomy, bleeding to L side 30 min ago <Rosy Howell PA-C - Last Filed: 04/13/25 17:51> Time Seen by Provider: 04/13/25 17:38 <Rosy Howell PA-C - Last Filed: 04/13/25 17:51> Focused HPI: Patient is a 29-year-old female who presents the ED with report of bleeding from recent tonsillectomy. Patient had tonsillectomy performed on 04/[address] Banks. States she was drinking something around 520pm when she began having bleeding from her L tonsil. Contacted Dr. Banks's office and was referred here for further evaluation. Patient denies difficulty breathing or swallowing. Last drink a protein shake around 5:00 p.m.. Had applesauce a few hours prior. GENERAL: Mildly uncomfortable-appearing, well-nourished, and in no acute distress. HEAD: Normocephalic, atraumatic. ENT: Difficulty opening mouth widely. Bilateral tonsillar beds appear diffusely cauterized. Small area of bleeding from injury to left tonsillar bed. CHEST: Clear to auscultation. ?No respiratory distress. No stridor. HEART: Regular rate and rhythm.? NEURO: ?Alert and oriented x3. Patient screened in triage and initial orders placed.? ?Additional care and disposition to be based upon?diagnostic testing and treatment. <Rosy Howell PA-C - Last Filed: 04/13/25 17:51> Source: patient <Rosy Howell PA-C - Last Filed: 04/13/25 17:51> Mode of arrival: ambulatory <Rosy Howell PA-C - Last Filed: 04/13/25 17:51> Limitations: no limitations <Rosy Howell PA-C - Last Filed: 04/13/25 17:51> History of Present Illness HPI narrative: Agree with HPI <Frank Euceda MD - Last Filed: 04/13/25 18:09> Related Data Allergies/adverse reactions: Allergies Allergy/AdvReac Type Severity Reaction Status Date / Time No Known Allergies Allergy Verified 04/13/25 17:47 <Rosy Howell PA-C - Last Filed: 04/13/25 17:51> Review of Systems Constitutional: Constitutional: Reports no additional constitutional complaints <Frank Euceda MD - Last Filed: 04/13/25 18:09> ENT: Reports system reviewed and no additional complaints, except as documented <Frank Euceda MD - Last Filed: 04/13/25 18:09> PMFSH Past Medical History Medical History: Medical History Chronic tonsillitis Cryptic tonsil Headache, migraine <Rosy Howell PA-C - Last Filed: 04/13/25 17:51> Surgical History Surgical History: Surgical History History of appendectomy <Rosy Howell PA-C - Last Filed: 04/13/25 17:51> Family History Family History: Family History Sibling Asthma Depression Grandparent Diabetes mellitus <Rosy Howell PA-C - Last Filed: 04/13/25 17:51> Social History Social History: Social History Social History: caffeine- coffee Smoking status: Never smoker Second hand tobacco smoke exposure: No Alcohol intake: never Substance use: never Substance use type: does not use Do You Feel Safe in your Home?: Yes Lack of Transportation: No Lack of Food: Never True Current Housing: I Have Housing Concerned About Future Housing: No Difficulty Paying Gas/Electric Bills: No Difficulty Paying for Meds: No Currently Unemployed: No Education: Master's Degree or Higher Difficulty w/ Childcare or Family Care: No Living arrangements: with family Additional living arrangements comments: with spouse Occupation/Education: occupation 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 HEAD: Normocephalic, atraumatic. ENT: Mucous membranes moist. Mild trismus. Tolerating oral secretions. CHEST: Clear to auscultation. No respiratory distress. HEART: Regular rate and rhythm. Normal peripheral pulses. EXTREMITIES: Normal range of motion. No edema. NEURO: Alert and oriented x3. PSYCH: Normal mood and affect. <Frank Euceda MD - Last Filed: 04/13/25 18:09> Course Course Emergency Course: ENT at bedside. Dr. Banks will take patient to OR. He requests a CBC. Will add on a CMP. <Frank Euceda MD - Last Filed: 04/13/25 18:09> Vital Signs Vital signs: Vital Signs Temperature 97.4 F L 04/13/25 17:40 Pulse Rate 98 04/13/25 17:40 Respiratory Rate 15 04/13/25 17:40 Blood Pressure 135/79 04/13/25 17:40 Pulse Oximetry 100 04/13/25 17:40 Oxygen Delivery Room Air 04/13/25 17:40 Temperature 97.4 F L 04/13/25 17:40 Pulse Rate 98 04/13/25 17:40 Respiratory Rate 15 04/13/25 17:40 Blood Pressure 135/79 04/13/25 17:40 Pulse Oximetry 100 04/13/25 17:40 Oxygen Delivery Room Air 04/13/25 17:40 <Rosy Howell PA-C - Last Filed: 04/13/25 17:51> Vital Signs Temperature 97.4 F L 04/13/25 17:40 Pulse Rate 98 04/13/25 17:40 Respiratory Rate 15 04/13/25 17:40 Blood Pressure 135/79 04/13/25 17:40 Pulse Oximetry 100 04/13/25 17:40 Oxygen Delivery Room Air 04/13/25 17:40 Temperature 97.4 F L 04/13/25 17:40 Pulse Rate 98 04/13/25 17:40 Respiratory Rate 15 04/13/25 17:40 Blood Pressure 135/79 04/13/25 17:40 Pulse Oximetry 100 04/13/25 17:40 Oxygen Delivery Room Air 04/13/25 17:40 <Frank Euceda MD - Last Filed: 04/13/25 18:09> Medical Decision Making MDM Narrative Medical decision making narrative: MSE by SALOME in triage. <Rosy Howell PA-C - Last Filed: 04/13/25 17:51> Vital Signs Vital Signs: Vital Signs Temperature 97.4 F L 04/13/25 17:40 Pulse Rate 98 04/13/25 17:40 Respiratory Rate 15 04/13/25 17:40 Blood Pressure 135/79 04/13/25 17:40 Pulse Oximetry 100 04/13/25 17:40 Oxygen Delivery Room Air 04/13/25 17:40 Temperature 97.4 F L 04/13/25 17:40 Pulse Rate 98 04/13/25 17:40 Respiratory Rate 15 04/13/25 17:40 Blood Pressure 135/79 04/13/25 17:40 Pulse Oximetry 100 04/13/25 17:40 Oxygen Delivery Room Air 04/13/25 17:40 <Rosy Howell PA-C - Last Filed: 04/13/25 17:51> Vital Signs Temperature 97.4 F L 04/13/25 17:40 Pulse Rate 98 04/13/25 17:40 Respiratory Rate 15 04/13/25 17:40 Blood Pressure 135/79 04/13/25 17:40 Pulse Oximetry 100 04/13/25 17:40 Oxygen Delivery Room Air 04/13/25 17:40 Temperature 97.4 F L 04/13/25 17:40 Pulse Rate 98 04/13/25 17:40 Respiratory Rate 15 04/13/25 17:40 Blood Pressure 135/79 04/13/25 17:40 Pulse Oximetry 100 04/13/25 17:40 Oxygen Delivery Room Air 04/13/25 17:40 <Frank Euceda MD - Last Filed: 04/13/25 18:09> Discharge Plan Discharge Clinical Impression: Post-tonsillectomy hemorrhage <Rosy Howell PA-C - Last Filed: 04/13/25 17:51> Patient Disposition: Still a Patient <CHRISTI Edmondson Last Filed: 04/13/25 17:51> Condition: Stable <CHRISTI Edmondson Last Filed: 04/13/25 17:51> Patient Language: Yemeni <CHRISTI Edmondson Last Filed: 04/13/25 17:51> Prescriptions: No Action amoxicillin 875 mg tablet 875 mg PO Q12H Qty: 14 0RF ondansetron 4 mg tablet,disintegrating 4 mg PO Q8H Qty: 21 0RF oxycodone 5 mg tablet 5 mg PO .q6-q8h PRN (Reason: pain) Qty: 20 0RF <CHRISTI Edmondson Last Filed: 04/13/25 17:51> Follow-up/Referrals: PHYSICIAN,MARKET RESEARCH ASSOCIATE [Primary Care Provider] - <CHRISTI Edmondson Last Filed: 04/13/25 17:51>
--- NOTE | 2025-04-13 18:01 | P.CONS_ITS ---
Assessment and Plan Assessment and plan (1) Post-tonsillectomy hemorrhage: Code(s): J95.830 - Postprocedural hemorrhage of a respiratory system organ or structure following a respiratory system procedure Status: Acute Assessment and Plan: Plan or control of tonsillectomy hemorrhage. Risks were discussed bleeding infection damage to nerve structures need for time off work time off school again postoperative bleeding 3-5% chance from intraoperative blood loss. Patient family voiced understanding the risk and agreed. HPI Data of Consult Date/Time: 04/13/25 18:01 Primary Care Provider: NICKEL OPERATOR PHYSICIAN Consult Narrative Reason for consult: Post tonsillectomy hemorrhage Narrative: Linn Lopez is a 29 year old female status post tonsillectomy 7 days ago. Bleeding from the left side. 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 Artery was tied off intraoperatively 7 days ago. [facility] Past Medical History Medical History Chronic tonsillitis Cryptic tonsil Headache, migraine Surgical History Surgical History History of appendectomy Family History Family History Sibling Asthma Depression Grandparent Diabetes mellitus Social History Social History Social History: caffeine- coffee Smoking status: Never smoker Second hand tobacco smoke exposure: No Alcohol intake: never Substance use: never Substance use type: does not use Do You Feel Safe in your Home?: Yes Lack of Transportation: No Lack of Food: Never True Current Housing: I Have Housing Concerned About Future Housing: No Difficulty Paying Gas/Electric Bills: No Difficulty Paying for Meds: No Currently Unemployed: No Education: Master's Degree or Higher Difficulty w/ Childcare or Family Care: No Living arrangements: with family Additional living arrangements comments: with spouse Occupation/Education: occupation 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 Gender identity (if verbalized by the patient): Female Sexual Orientation (if Verbalized by the Patient): Straight or Heterosexual Spiritual care concerns: No Agree to blood products: No Meds Home Medications and Allergies Home Medications ?Medication ?Instructions ?Recorded ?Confirmed ?Type amoxicillin 875 mg tablet 875 mg PO Q12H #14 tabs 04/07/25 Rx ondansetron 4 mg disintegrating 4 mg PO Q8H #21 tabs 04/10/25 Rx tablet oxycodone 5 mg tablet 5 mg PO .q6-q8h PRN pain #20 tabs 04/13/25 Rx Allergies Allergy/AdvReac Type Severity Reaction Status Date / Time No Known Allergies Allergy Verified 04/13/25 17:47 Vital Signs Vital Signs - 24 hr 04/13/25 17:40 Temperature 36.3 C L Pulse Rate 98 Respiratory Rate 15 Blood Pressure 135/79 Pulse Oximetry 100 Oxygen Delivery Room Air Exam Narrative: Superior left fossa looks good there was clot inferiorly right fossa looks good
[2025-04-13 18:17] LABS: Basophils Percent Auto 0.5 % (0.2-1.2); Eosinophils Absolute Auto 0.1 K/mm3 (0-0.3); Eosinophils Percent Auto 1.8 % (0-4.4); Hematocrit 37.2 % (37.0-47.0); Hemoglobin 12.4 g/dL (12.0-15.0); Immature Granulocyte Absolute 0.03 K/mm3 (0.00-0.031); Immature Granulocyte Percent A 0.5 % (0-0.5); Lymphocytes Absolute Auto 1.56 K/mm3 (0.9-3.2); Lymphocytes Percent Auto 28.3 % (18.3-44.2); Mean Corpuscular HGB Conc 33.3 g/dl (32-36); Mean Corpuscular Hemoglobin 28.6 pg (26-34); Mean Corpuscular Volume 85.7 fl (80-100); Mean Platelet Volume 9.6 fl (7.4-10.4); Monocytes Absolute Auto 0.5 K/mm3 (0.1-0.6); Monocytes Percent Auto 9.1 % (2.6-8.5); Neutrophils Absolute Auto 3.3 K/mm3 (1.3-6.7); Neutrophils Percent Auto 59.8 % (45.5-73.1); Platelet Count Result 291 k/mm3 (150-375); Red Blood Count 4.34 M/mm3 (4.2-5.4); Red Cell Distribution Width 11.9 % (11.5-14.5); White Blood Count 5.5 K/mm3 (4.5-10.0)
--- OUTSIDE RECORDS SUMMARY | 2025-04-13 18:26 | XMS_ITS | Continuity of Care Document ---
Author Organization [facility] Address [address] [place] [address] Phone Care Team Providers Care Row Boss Hoeing Name Role Phone Mc PT, SRINIVASAT, Brooks Unavailable Unavailable Procedures Procedure Date Therapeutic Activities Manual Therapy Neuromuscular Re-Ed Therapeutic Activities Neuromuscular Re-Ed PT Evaluation Moderate Complexity Therapeutic Activities Neuromuscular Re-Ed Free Assessment Advance Directives Directive Yes / No Effective Date File Name No Information Encounters Encounter Description Practice Location Reason(s) For Visit Diagnoses Date Provider Providers Copied on Encounter [facility] [address], [place], [place], [id number], tel:[phone] [place] No Information 2 Mc Guy. . [facility], [place], [place], [id number], tel:[phone] [place] No Information 2 Mc Guy. . Referring Provider: [facility]. [facility], [place], [place], [id number], tel:[phone] [place] No Information 2 Mc Guy. . Referring Provider: [facility]. [facility], [place], [place], [id number], tel:[phone] [place] No Information 2 Mc Guy. . Referring Provider: [facility]. [facility] [place], [address], [place], [place], [id number], [place] tel:[phone] [place] No Information 2 Mc Guy. . Referring Provider: Physician Screen. Family History Family Member Type Diagnosis Age At Onset No Information Payers Payer name Insurance type Covered democrat ID Ana dunbar(s) [facility] [id number] Social History Type Description Quantity Date Captured [...]
--- OUTSIDE RECORDS SUMMARY | 2025-04-13 18:26 | XMS_ITS | Clinical Summary ---
Author Organization [facility] Address [address] [place] [address] [place] [address] Phone Care Team Providers Care Licensed Practical Nurse Clinic Nurse Name Role Phone BritoBruce Cheri FRAIRE Primary Care Provider [phone] Allergies No known active allergies Medications Lo Loestrin Fe 1 mg-10 mcg (24)/10 mcg (2) Tablet per tablet TAKE 1 TABLET BY MOUTH DAILY 28 Tablet 0 Active White- Dihydroergotamine 10/Caffeine 30 mg capsule compoundIndications:C hronic migraine Take 1 capsule by mouth three times daily with food as needed for migraine. Limit use to 2 days per week. 24 Capsule 11/09/2020 2:53 PM ELECTRICAL DISCHARGE MACHINE OPERATOR 0 Active Active Problems Problem Noted Date [...] on file Legal Sex Female 4:55 AM ELECTRICAL DISCHARGE MACHINE OPERATOR Gender Identity Not on file Sexual Orientation Not on file Last Filed Vital Signs Vital Sign Reading Time Taken Comments Blood Pressure 120/68 11/09/2020 12:52 PM ELECTRICAL DISCHARGE MACHINE OPERATOR Pulse 80 11/09/2020 12:52 PM ELECTRICAL DISCHARGE MACHINE OPERATOR Temperature 36.8 C (98.2 F) 11/09/2020 12:52 PM ELECTRICAL DISCHARGE MACHINE OPERATOR Respiratory Rate 16 06/27/2019 7:07 PM CDT Oxygen Saturation 98% 12/22/2019 2:16 PM ELECTRICAL DISCHARGE MACHINE OPERATOR Inhaled Oxygen Concentration - - Weight 66.7 kg (147 lb) 11/09/2020 12:52 PM ELECTRICAL DISCHARGE MACHINE OPERATOR Height 170.2 cm (5' 7 ) 11/09/2020 12:52 PM ELECTRICAL DISCHARGE MACHINE OPERATOR Body Mass Index 23.02 11/09/2020 12:52 PM ELECTRICAL DISCHARGE MACHINE OPERATOR Plan of Treatment Health Maintenance Due Date [...] GC, PAP VIAL Routine 11/08/2020 1:47 PM ELECTRICAL DISCHARGE MACHINE OPERATOR Well woman exam with routine gynecological exam CERV/VAG CYTO AGE BASED SCREEN PAP Routine 11/08/2020 1:47 PM ELECTRICAL DISCHARGE MACHINE OPERATOR Well woman exam with routine gynecological exam from Last 3 Months or Most Recently Relevant to Health Maintenance Results * CERV/VAG CYTO AGE BASED SCREEN PAP (11/08/2020 1:47 PM ELECTRICAL DISCHARGE MACHINE OPERATOR) COMMENT (PAP): SEE COMMENT 0 8:14 AM ELECTRICAL DISCHARGE MACHINE OPERATOR [facility] Comment: This order for age-based cervical cancer and STI screening follows ACOG guidelines(PB 168, 140, VXR637). See individual assays for performing site location. CLINICAL INFORMATION Information not provided 11/12/2020 8:14 AM ELECTRICAL DISCHARGE MACHINE OPERATOR [facility] LAST MENSTRUAL PERIOD Information not provided 11/12/2020 8:14 AM ELECTRICAL DISCHARGE MACHINE OPERATOR [facility] PREV PAP: Information not provided 11/12/2020 8:14 AM ELECTRICAL DISCHARGE MACHINE OPERATOR [facility] PREV BX: Information not provided 11/12/2020 8:14 AM ELECTRICAL DISCHARGE MACHINE OPERATOR [facility] SOURCE Endocervix 11/12/2020 8:14 AM ELECTRICAL DISCHARGE MACHINE OPERATOR [facility] ADEQUACY: SEE COMMENT 11/12/2020 8:14 AM ELECTRICAL DISCHARGE MACHINE OPERATOR [facility] Comment: Satisfactory for evaluation. Endocervical/transformation zone component present. Age and/or menstrual status not provided PAP INTERP Negative for intraepithelial lesion or malignancy. 11/12/2020 8:14 AM ELECTRICAL DISCHARGE MACHINE OPERATOR [facility] COMMENT This Pap test has been evaluated with computer assisted technology. 11/12/2020 8:14 AM ELECTRICAL DISCHARGE MACHINE OPERATOR [facility] REINFORCEMENT MAKER: SEE COMMENT 2019 8:14 AM ELECTRICAL DISCHARGE MACHINE OPERATOR [facility] Comment: CECILIO CT(ASCP) CT screening location: [place] [address] [place] [address] EXPLANATORY NOTE SEE COMMENT 020 8:14 AM ELECTRICAL DISCHARGE MACHINE OPERATOR [facility] Comment: EXPLANATORY NOTE: [...] Unknown Collection / Unknown 11/08/2020 1:47 PM ELECTRICAL DISCHARGE MACHINE OPERATOR 11/08/2020 3:28 PM ELECTRICAL DISCHARGE MACHINE OPERATOR Narrative [facility] - 11/12/2020 8:14 AM ELECTRICAL DISCHARGE MACHINE OPERATOR Performing Organization Information: Site ID: [place] Name: [facility] Address: [address] [place] [address] Director: Giselle Pascual Vineet Galdamez MD PATHOLOGY/CYTOLOGY ORDERABLES Final Result Performing Organization Address [facility]/ZIP Co de Phone Number [facility] [phone] * CHLAMYDIA AND GC, PAP VIAL (11/08/2020 1:47 PM ELECTRICAL DISCHARGE MACHINE OPERATOR) C TRAC RNA NOT DETECTED NOT DETECTED 11/12/2020 8:14 AM ELECTRICAL DISCHARGE MACHINE OPERATOR [facility] N.GONORRHOEAE RNA, TMA NOT DETECTED NOT DETECTED 11/12/2020 8:14 AM ELECTRICAL DISCHARGE MACHINE OPERATOR [facility] COMMENT SEE COMMENT 11/12/2020 8:14 AM ELECTRICAL DISCHARGE MACHINE OPERATOR [facility] Comment: The analytical performance characteristics of this assay, when used to test SurePath(TM) specimens have been determined by [facility]. The modifications have not been cleared or approved by the FDA. This assay has been validated pursuant to the CLIA regulations and is used for clinical purposes. For additional information, please refer to https://education.Auth0/faq/YNW091 (This link is being provided for information/ educational purposes only.) Genital SWAB OF ENDOCERVIX / Unknown Collection / Unknown 11/08/2020 1:47 PM ELECTRICAL DISCHARGE MACHINE OPERATOR 11/08/2020 3:28 PM ELECTRICAL DISCHARGE MACHINE OPERATOR Narrative [facility] - 11/12/2020 8:14 AM ELECTRICAL DISCHARGE MACHINE OPERATOR Performing Organization Information: Site ID: [facility] Name: [facility] Address: [address] [place] [address] Director: Ammon Smyth D.O., MPH Performing Organization Information: Site ID: [place] Name: [facility] Address: [address] [place] [address] Director: Ammon Smyth D.O., MPH Vineet aGldamez MD BODY FLUIDS AND STOOLS COM Ed ited Result - Final Performing Organization Address City/[facility]/ZIP Co de Phone Number [facility] [phone] from Last 3 Months or Most Recently Relevant to Health Maintenance Insurance BCBS BLUE ACCESS/TRUE BLUE PPO RX [facility] RX [place] Commercial RX EXPRESS [employer] Express RX [employer] Express RX [place] Commercial RX [facility] Care Teams Licensed Practical Nurse Clinic Nurse Relationship Specialty Start Date End Date Bruce Brito DO PCP - General Family Practice 06/20/10
--- OUTSIDE RECORDS SUMMARY | 2025-04-13 18:26 | XMS_ITS | Encounter Summary ---
Author Organization [facility] Address [address] [place] [address] Care Team Providers Care Master Planner Name Role Phone Bruce Brito DO Primary Care Provider [phone] Encounter Details Date Type Department Care Team (Late st Contact Info) Description 07/08/2008 Outpatient Historical [facility] [place] [address] [place] [address] Social History Tobacco Use Types Packs/Day Years Used Date Smoking Tobacco: Never Assessed Comments Unknown Sex and Gender Information Value Date Recorded Sex Assigned at Not on file Legal Sex Female 4:55 AM FRONT WORKER Gender Identity Not on file Sexual Orientation Not on file documented as of this encounter Plan of Treatment Not on file documented as of this encounter Visit Diagnoses Not on filedocumented in this encounter Care Teams Master Planner Relationship Specialty Start Date End Date Bruce Brito DO PCP - General Family Practice 06/20/10 documented as of this encounter
--- OUTSIDE RECORDS SUMMARY | 2025-04-13 18:26 | XMS_ITS | Encounter Summary ---
Author Organization [facility] Address [address] [place] [address] Care Team Providers Care Logging Truck Driver Name Role Phone Bruce Brito DO Primary Care Provider [phone] Encounter Details Date Type Department Care Team (Late st Contact Info) Description 08/17/1998 Outpatient Historical [facility] [place] [address] [facility] [place] [address] Spenser Gaytan MD NO ADDRESS ON FILE Social History Tobacco Use Types Packs/Day Years Used Date Smoking Tobacco: Never Assessed Comments Unknown Sex and Gender Information Value Date Recorded Sex Assigned at Not on file Legal Sex Female 4:55 AM LATHE MACHINE OPERATOR Gender Identity Not on file Sexual Orientation Not on file documented as of this encounter Plan of Treatment Not on file documented as of this encounter Visit Diagnoses Not on filedocumented in this encounter Care Teams Logging Truck Driver Relationship Specialty Start Date End Date Bruce Brito DO PCP - General Family Practice 06/20/10 documented as of this encounter
--- OUTSIDE RECORDS SUMMARY | 2025-04-13 18:26 | XMS_ITS | Clinical Summary ---
Author Organization [facility] Address [address] [place] [address] Care Team Providers Care Talent Acquisition Consultant Name Role Phone Unavailable Primary Care Provider Unavailabl e Social History Tobacco Use Types Packs/Day Years Used Date Smoking Tobacco: Never Assessed Comments Unknown Sex and Gender Information Value Date Recorded Sex Assigned at Not on file Legal Sex Female 12:44 PM PROTECTIVE SIGNAL INSTALLER HELPER Gender Identity Not on file Sexual [...]
--- OUTSIDE RECORDS SUMMARY | 2025-04-13 18:26 | XMS_ITS | Referral Summary ---
Author Organization [facility] Address [address] [place] [address] Care Team Providers Care Display Decorator Name Role Phone No, Physician Primary Care Provider [phone] Jeancarlos Brito DO Unavailable [phone] Spenser Mendenhall MD Unavailable [phone] Allergies No known active allergies Medications No [...] Comments Blood Pressure 109/74 12/30/2024 8:22 AM ROUTE SALESMAN Pulse 93 12/30/2024 8:22 AM ROUTE SALESMAN Temperature - - Respiratory Rate - - Oxygen Saturation - - Inhaled Oxygen Concentration - - Weight 65.3 kg (144 lb) 12/30/2024 8:22 AM ROUTE SALESMAN Height 170.2 cm (5' 7 ) 12/30/2024 8:22 AM ROUTE SALESMAN Body Mass Index 22.55 12/30/2024 8:22 AM ROUTE SALESMAN Plan of Treatment Not on file Insurance [facility] AETNA SIGNATURE [facility] AETNA SIGNATURE Care Teams Display Decorator Relationship Specialty Start Date End Date No, Physician PCP - General 04/30/23 Jeancarlos Brito DO [place] [address] [facility] [address] [place] [address] 04/30/23 Spenser Mendenhall MD [address] [address] Referring Physician Obstetrics and Gynecology 04/30/23
--- OUTSIDE RECORDS SUMMARY | 2025-04-13 18:26 | XMS_ITS | Encounter Summary ---
Author Organization [facility] Address [address] [place] [address] Care Team Providers Care Health Safety Instructor Name Role Phone Bruce Brito DO Primary Care Provider [phone] Encounter Details Date Type Department Care Team (Late st Contact Info) Description 08/30/2019 Specialty Pharmacy [facility] [address] [address] [place] Social History Tobacco Use Types Packs/Day Years Used Date Smoking Tobacco: Never Smokeless Tobacco: Never Alcohol Use Standard Drinks/Week Comments No 0 (1 standard drink = 0.6 oz pur e alcohol) Comments No Sex and Gender Information Value Date Recorded Sex Assigned at Not on file Legal Sex Female 4:55 AM SEWAGE DISPOSAL WORKER Gender Identity Not on file Sexual Orientation Not on file documented as of this encounter Plan of Treatment Not on file documented as of this encounter Visit Diagnoses Not on filedocumented in this encounter Care Teams Health Safety Instructor Relationship Specialty Start Date End Date Bruce Brito DO PCP - General Family Practice 06/20/10 documented as of this encounter
--- OUTSIDE RECORDS SUMMARY | 2025-04-13 18:26 | XMS_ITS | Clinical Summary ---
Author Organization [facility] Address [address] [place] [address] Care Team Providers Care Senior Infrastructure Engineer Name Role Phone No, Physician Primary Care Provider [phone] Jeancarlos Brito DO Unavailable [phone] Spenser Mendenhall MD Unavailable [phone] Allergies No known active allergies Medications No [...] Comments Blood Pressure 109/74 12/30/2024 8:22 AM DIE TROUBLE SHOOTER Pulse 93 12/30/2024 8:22 AM DIE TROUBLE SHOOTER Temperature - - Respiratory Rate - - Oxygen Saturation - - Inhaled Oxygen Concentration - - Weight 65.3 kg (144 lb) 12/30/2024 8:22 AM DIE TROUBLE SHOOTER Height 170.2 cm (5' 7 ) 12/30/2024 8:22 AM DIE TROUBLE SHOOTER Body Mass Index 22.55 12/30/2024 8:22 AM DIE TROUBLE SHOOTER Plan of Treatment Health Maintenance Due Date [...] patient's age to complete this topic Insurance [facility] AETNA SIGNATURE [facility] AETNA SIGNATURE Care Teams Senior Infrastructure Engineer Relationship Specialty Start Date End Date No, Physician PCP - General 04/30/23 Jeancarlos Brito DO [address] [place] [address] [address] [place] [address] 04/30/23 Spenser Mendenhall MD [address] [address] Referring Physician Obstetrics and Gynecology 04/30/23
--- OUTSIDE RECORDS SUMMARY | 2025-04-13 18:26 | XMS_ITS | Encounter Summary ---
Author Organization [facility] Address [address] [place] [address] Care Team Providers Care Community Arts Officer Name Role Phone Bruce Brito DO Primary Care Provider [phone] Encounter Details Date Type Department Care Team (Late st Contact Info) Description 01/05/1999 Outpatient Historical [facility] Pediatric[facility] [place] [address] [place] [address] Spenser Gaytan MD NO ADDRESS ON FILE Social History Tobacco Use Types Packs/Day Years Used Date Smoking Tobacco: Never Assessed Comments Unknown Sex and Gender Information Value Date Recorded Sex Assigned at Not on file Legal Sex Female 4:55 AM CIGARETTE VENDOR Gender Identity Not on file Sexual Orientation Not on file documented as of this encounter Plan of Treatment Not on file documented as of this encounter Visit Diagnoses Not on filedocumented in this encounter Care Teams Community Arts Officer Relationship Specialty Start Date End Date Bruce Brito DO PCP - General Family Practice 06/20/10 documented as of this encounter
--- OUTSIDE RECORDS SUMMARY | 2025-04-13 18:26 | XMS_ITS | Encounter Summary ---
Author Organization [facility] Address [address] [place] [address] Care Team Providers Care Senior Pharmacy Technician Name Role Phone Bruce Brito DO Primary Care Provider [phone] Encounter Details Date Type Department Care Team (Late st Contact Info) Description 05/13/1999 Outpatient Historical [facility] [place] [address] [facility] [place] [place] [address] Spenser Gaytan MD NO ADDRESS ON FILE Social History Tobacco Use Types Packs/Day Years Used Date Smoking Tobacco: Never Assessed Comments Unknown Sex and Gender Information Value Date Recorded Sex Assigned at Not on file Legal Sex Female 4:55 AM QUALITY CONTROL Gender Identity Not on file Sexual Orientation Not on file documented as of this encounter Plan of Treatment Not on file documented as of this encounter Visit Diagnoses Not on filedocumented in this encounter Care Teams Senior Pharmacy Technician Relationship Specialty Start Date End Date Bruce Brito DO PCP - General Family Practice 06/20/10 documented as of this encounter
--- OUTSIDE RECORDS SUMMARY | 2025-04-13 18:26 | XMS_ITS | Clinical Summary ---
Author Organization [facility] Address [address] [place] [address] Care Team Providers Care Switch Operator Name Role Phone Unavailable Primary Care Provider Unavailabl e Source Comments [facility],non-owned Affiliates and Associated Physician Practices is amultiple site organization consisting of ambulatory clinics and hospital sitesin [place], [place], [place] and [place]. This disclosure is being madepursuant to the Care Everywhere program and may not contain all information available regarding this patient. Last updated 18.[facility] Immunizations Immunization Administration Dates Next Due Covid Pfizer primary monoval ent 12+ yr 0.3mL Purple cap 01/09/2021,12/19/2020 Social History Tobacco Use Types Packs/Day Years Used Date Smoking Tobacco: Never Assessed Comments Unknown Sex and Gender Information Value Date Recorded Sex Assigned at Not on file Legal Sex Female 1:34 PM HOUSE PAINTER HELPER Gender Identity Not on file Sexual [...] patient's age to complete this topic Insurance [facility] SELF PAY NO INSURANCE Member Subscriber Plan / Payer (Ef fective for All Dates) Name:Linn Lopez Member ID:Not on file Relation to Subscriber:Not on file Name:LINN LOPEZ Subscriber ID:Not on file (Home) Address: [address] [place] [address] Payer ID:Not on file Group ID:Not on file Type:Self Pay Address: [place], [place]
--- OUTSIDE RECORDS SUMMARY | 2025-04-13 18:26 | XMS_ITS | Encounter Summary ---
Author Organization [facility] Address [address] [place] [address] Care Team Providers Care Sheriff Sergeant Name Role Phone Bruce Brito DO Primary Care Provider [phone] Encounter Details Date Type Department Care Team (Late st Contact Info) Description 09/22/1998 Outpatient Historical [facility] Pediatric[facility] [place] [address] [facility] [place] [address] Spenser Gaytan MD NO ADDRESS ON FILE Social History Tobacco Use Types Packs/Day Years Used Date Smoking Tobacco: Never Assessed Comments Unknown Sex and Gender Information Value Date Recorded Sex Assigned at Not on file Legal Sex Female 4:55 AM CAMPUS WELLNESS COORDINATOR Gender Identity Not on file Sexual Orientation Not on file documented as of this encounter Plan of Treatment Not on file documented as of this encounter Visit Diagnoses Not on filedocumented in this encounter Care Teams Sheriff Sergeant Relationship Specialty Start Date End Date Bruce Brito DO PCP - General Family Practice 06/20/10 documented as of this encounter
[2025-04-13 18:27] LABS: Alanine Aminotransferase 19 U/L (6-35); Albumin Level 4.6 g/dL (3.5-5.1); Alkaline Phosphatase 60 U/L (38-126); Anion Gap 10 mmol/L (4-12); Aspartate Amino Transferase 28 U/L (14-36); Bilirubin,Total 0.3 mg/dL (0.2-1.3); Blood Urea Nitrogen 9 mg/dL (7-17); Calcium 9.1 mg/dL (8.4-10.2); Carbon Dioxide 27 mmol/L (22-30); Chloride 100 mmol/L (98-107); Estimated CRCL calculation 125 ml/min; Estimated Glomerular Filt Rate > 60; Glucose 107 mg/dL (65-110); Potassium 3.4 mmol/L (3.4-5.0); Sodium 137 mmol/L (137-145)
--- NOTE | 2025-04-13 19:27 | PC.NURSE ---
Received report from ANABEL Mckeon for cont. of care. Pt now being taken to surgery in w/c by cadd technician. Pt consent signed, and in chart. DIRT CONTRACTOR made aware.
--- OUTSIDE RECORDS SUMMARY | 2025-04-13 19:30 | XMS_ITS | Clinical Summary ---
Author Organization [facility] Address [address] [place] [address] Care Team Providers Care Metal Smelter Name Role Phone Unavailable Primary Care Provider Unavailabl e Social History Tobacco Use Types Packs/Day Years Used Date Smoking Tobacco: Never Assessed Comments Unknown Sex and Gender Information Value Date Recorded Sex Assigned at Not on file Legal Sex Female 12:44 PM HELP DESK ASSISTANT Gender Identity Not on file Sexual Orientation [...]
--- OUTSIDE RECORDS SUMMARY | 2025-04-13 19:30 | XMS_ITS | Encounter Summary ---
Author Organization [facility] Address [address] [place] [address] Care Team Providers Care Flat Knitter Helper Name Role Phone Bruce Brito DO Primary Care Provider [phone] Encounter Details Date Type Department Care Team (Late st Contact Info) Description 08/30/2019 Specialty Pharmacy [facility] Specialty Pharmacy [address] [address] [place] Social History Tobacco Use Types Packs/Day Years Used Date Smoking Tobacco: Never Smokeless Tobacco: Never Alcohol Use Standard Drinks/Week Comments No 0 (1 standard drink = 0.6 oz pur e alcohol) Comments No Sex and Gender Information Value Date Recorded Sex Assigned at Not on file Legal Sex Female 4:55 AM HEAD OF ACADEMIC TECHNOLOGY Gender Identity Not on file Sexual Orientation Not on file documented as of this encounter Plan of Treatment Not on file documented as of this encounter Visit Diagnoses Not on filedocumented in this encounter Care Teams Flat Knitter Helper Relationship Specialty Start Date End Date Bruce Brito DO PCP - General Family Practice 06/20/10 documented as of this encounter
--- OUTSIDE RECORDS SUMMARY | 2025-04-13 19:30 | XMS_ITS | Clinical Summary ---
Author Organization [employer] [facility] Address [address] [place] [address] [place] [address] Phone Care Team Providers Care Renovator Machine Operator Name Role Phone BritoBruce Cheri FRAIRE Primary Care Provider [phone] Allergies No known active allergies Medications Lo Loestrin Fe 1 mg-10 mcg (24)/10 mcg (2) Tablet per tablet TAKE 1 TABLET BY MOUTH DAILY 28 Tablet 0 Active White- Dihydroergotamine 10/Caffeine 30 mg capsule compoundIndications:C hronic migraine Take 1 capsule by mouth three times daily with food as needed for migraine. Limit use to 2 days per week. 24 Capsule 11/09/2020 2:[address] 0 Active Active Problems Problem Noted Date [...] Hx Relation Name Status Comments Father Michael Hornre Alive Maternal Grandfather Nii Ramos Maternal Grandmother [...] on file Legal Sex Female 4:[address] Gender Identity Not on file Sexual Orientation Not on file Last Filed Vital Signs Vital Sign Reading Time Taken Comments Blood Pressure 120/68 11/09/2020 12:[address] Pulse 80 11/09/2020 12:[address] Temperature 36.8 C (98.2 F) 11/09/2020 12:[address] Respiratory Rate 16 06/27/2019 7:07 PM CDT Oxygen Saturation 98% 12/22/2019 2:[address] Inhaled Oxygen Concentration - - Weight 66.7 kg (147 lb) 11/09/2020 12:[address] Height 170.2 cm (5' 7 ) 11/09/2020 12:[address] Body Mass Index 23.02 11/09/2020 12:[address] Plan of Treatment Health Maintenance Due Date [...] GC, PAP VIAL Routine 11/08/2020 1:[address] Well woman exam with routine gynecological exam CERV/VAG CYTO AGE BASED SCREEN PAP Routine 11/08/2020 1:[address] Well woman exam with routine gynecological exam from Last 3 Months or Most Recently Relevant to Health Maintenance Results * CERV/VAG CYTO AGE BASED SCREEN PAP (11/08/2020 1:[address]) COMMENT (PAP): SEE COMMENT 0 8:[address] [facility] Comment: This order for age-based cervical cancer and STI screening follows ACOG guidelines(PB 168, 140, SKH755). See individual assays for performing site location. CLINICAL INFORMATION Information not provided 11/12/2020 8:[address] [facility] LAST MENSTRUAL PERIOD Information not provided 11/12/2020 8:[address] [facility] PREV PAP: Information not provided 11/12/2020 8:[address] [facility] PREV BX: Information not provided 11/12/2020 8:[address] [facility] SOURCE Endocervix 11/12/2020 8:[address] [facility] ADEQUACY: SEE COMMENT 11/12/2020 8:[address] [facility] Comment: Satisfactory for evaluation. Endocervical/transformation zone component present. Age and/or menstrual status not provided PAP INTERP Negative for intraepithelial lesion or malignancy. 11/12/2020 8:[address] [facility] COMMENT This Pap test has been evaluated with computer assisted technology. 11/12/2020 8:[address] [facility] ASSEMBLY DETAILER: SEE COMMENT 2019 8:[address] [facility] Comment: CECILIO CT(ASCP) CT screening location: [place] [address] [place] [address] EXPLANATORY NOTE SEE COMMENT 020 8:[address] [facility] Comment: EXPLANATORY NOTE: [...] Unknown Collection / Unknown 11/08/2020 1:[address] 11/08/2020 3:[address] Narrative [facility] - 11/12/2020 8:[address] Performing Organization Information: Site ID: [place] Name: [facility] Address: [address] [place] [address] Director: Giselle Pascual Vineet Galdamez MD PATHOLOGY/CYTOLOGY ORDERABLES Final Result Performing Organization Address [facility]/ZIP Co de Phone Number [facility] [phone] * CHLAMYDIA AND GC, PAP VIAL (11/08/2020 1:[address]) C TRAC RNA NOT DETECTED NOT DETECTED 11/12/2020 8:[address] [facility] N.GONORRHOEAE RNA, TMA NOT DETECTED NOT DETECTED 11/12/2020 8:[address] [facility] COMMENT SEE COMMENT 11/12/2020 8:[address] [facility] Comment: The analytical performance characteristics of this assay, when used to test SurePath(TM) specimens have been determined by [facility]. The modifications have not been cleared or approved by the FDA. This assay has been validated pursuant to the CLIA regulations and is used for clinical purposes. For additional information, please refer to https://education.[employer]/faq/EFG870 (This link is being provided for information/ educational purposes only.) Genital SWAB OF ENDOCERVIX / Unknown Collection / Unknown 11/08/2020 1:[address] 11/08/2020 3:[address] Narrative [facility] - 11/12/2020 8:[address] Performing Organization Information: Site ID: [id number] Name: [facility] Address: [address] [place] [address] Director: Ammon Smyth D.O., MPH Performing Organization Information: Site ID: [id number] Name: [facility] Address: [address] [place] [address] Director: Ammon Smyth D.O., MPH Vineet Galdamez MD BODY FLUIDS AND STOOLS COM Ed ited Result - Final Performing Organization Address City/[facility]/ZIP Co de Phone Number [facility] [phone] from Last 3 Months or Most Recently Relevant to Health Maintenance Insurance BCBS BLUE ACCESS/TRUE BLUE PPO RX [facility] RX [place] Commercial RX EXPRESS [employer] Express RX [employer] Express RX [place] Commercial RX [facility] Care Teams Renovator Machine Operator Relationship Specialty Start Date End Date Bruce Brito DO PCP - General Family Practice 06/20/10
--- OUTSIDE RECORDS SUMMARY | 2025-04-13 19:30 | XMS_ITS | Encounter Summary ---
Author Organization [facility] Address [address] [place] [address] Care Team Providers Care Glycerin Supervisor Name Role Phone Bruce Brito DO Primary Care Provider [phone] Encounter Details Date Type Department Care Team (Late st Contact Info) Description 05/13/1999 Outpatient Historical [facility] [place] [address] [facility] [place] [address] Spenser Gaytan MD NO ADDRESS ON FILE Social History Tobacco Use Types Packs/Day Years Used Date Smoking Tobacco: Never Assessed Comments Unknown Sex and Gender Information Value Date Recorded Sex Assigned at Not on file 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
--- OUTSIDE RECORDS SUMMARY | 2025-04-13 19:30 | XMS_ITS | Clinical Summary ---
Author Organization [facility] [employer] Address [address] [place] [address] Care Team Providers Care City Recorder Name Role Phone Unavailable Primary Care Provider Unavailabl e Source Comments [facility],non-owned Affiliates and Associated Physician Practices is amultiple site organization consisting of ambulatory clinics and hospital sitesin [place], [place], [place] and [place]. This disclosure is being madepursuant to the Care Everywhere program and may not contain all information available regarding this patient. 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 [address] Payer ID:Not on file Group ID:Not on file Type:Self Pay Address: [place], [place]
--- OUTSIDE RECORDS SUMMARY | 2025-04-13 19:30 | XMS_ITS | Encounter Summary ---
Author Organization [facility] Address 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
--- OUTSIDE RECORDS SUMMARY | 2025-04-13 19:30 | XMS_ITS | Clinical Summary ---
Author Organization [facility] Address [address] [place] [address] Care Team Providers Care Tobacco Grower Name Role Phone No, Physician Primary Care Provider [phone] Jeancarlos Brito DO Unavailable [phone] Spenser Mendenhall MD Unavailable [phone] Allergies No known active allergies Medications No [...] Comments Blood Pressure 109/74 12/30/2024 8:22 AM CAN DRYER Pulse 93 12/30/2024 8:22 AM CAN DRYER Temperature - - Respiratory Rate - - Oxygen Saturation - - Inhaled Oxygen Concentration - - Weight 65.3 kg (144 lb) 12/30/2024 8:22 AM CAN DRYER Height 170.2 cm (5' 7 ) 12/30/2024 8:22 AM CAN DRYER Body Mass Index 22.55 12/30/2024 8:22 AM CAN DRYER Plan of Treatment Health Maintenance Due Date [...] patient's age to complete this topic Insurance [facility] AETNA SIGNATURE [facility] AETNA SIGNATURE Care Teams Tobacco Grower Relationship Specialty Start Date End Date No, Physician PCP - General 04/30/23 Jeancarlos Brito DO [address] [place] [address] [facility] [address] [place] [address] 04/30/23 Spenser Mendenhall MD [address] [address] Referring Physician Obstetrics and Gynecology 04/30/23
--- OUTSIDE RECORDS SUMMARY | 2025-04-13 19:30 | XMS_ITS | Encounter Summary ---
Author Organization [employer] Address 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
--- OUTSIDE RECORDS SUMMARY | 2025-04-13 19:30 | XMS_ITS | Encounter Summary ---
Author Organization [facility] Address [address] [place] [address] Care Team Providers Care Smoke Jumper Supervisor Name Role Phone Bruce Brito DO Primary Care Provider [phone] Encounter Details Date Type Department Care Team (Late st Contact Info) Description 09/22/1998 Outpatient Historical [facility] [place] [address] [facility] [place] [address] Spenser Gaytan MD NO ADDRESS ON FILE Social History Tobacco Use Types Packs/Day Years Used Date Smoking Tobacco: Never Assessed Comments Unknown Sex and Gender Information Value Date Recorded Sex Assigned at Not on file 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
--- OUTSIDE RECORDS SUMMARY | 2025-04-13 19:30 | XMS_ITS | Referral Summary ---
Author Organization [facility] Address [address] [place] [address] Care Team Providers Care Associate Sales Representative Name Role Phone No, Physician Primary Care Provider [phone] Jeancarlos Brito DO Unavailable [phone] Spenser Mendenhall MD Unavailable [phone] Allergies No known active allergies Medications No [...] Comments Blood Pressure 109/74 12/30/2024 8:22 AM SAWDUST DRIER Pulse 93 12/30/2024 8:22 AM SAWDUST DRIER Temperature - - Respiratory Rate - - Oxygen Saturation - - Inhaled Oxygen Concentration - - Weight 65.3 kg (144 lb) 12/30/2024 8:22 AM SAWDUST DRIER Height 170.2 cm (5' 7 ) 12/30/2024 8:22 AM SAWDUST DRIER Body Mass Index 22.55 12/30/2024 8:22 AM SAWDUST DRIER Plan of Treatment Not on file Insurance [facility] AETNA SIGNATURE [facility] AETNA SIGNATURE Care Teams Associate Sales Representative Relationship Specialty Start Date End Date No, Physician PCP - General 04/30/23 Jeancarlos Brito DO [place] [address] [facility] [address] [place] [address] 04/30/23 Spenser Mendenhall MD [address] [address] Referring Physician Obstetrics and Gynecology 04/30/23
--- OUTSIDE RECORDS SUMMARY | 2025-04-13 19:30 | XMS_ITS | Encounter Summary ---
Author Organization [facility] Address [address] [place] [address] Care Team Providers Care Access Rn Name Role Phone Bruce Brito DO Primary Care Provider [phone] Encounter Details Date Type Department Care Team (Late st Contact Info) Description 01/05/1999 Outpatient Historical [facility] [place] [address] [facility] [place] [address] Spenser Gaytan MD NO ADDRESS ON FILE Social History Tobacco Use Types Packs/Day Years Used Date Smoking Tobacco: Never Assessed Comments Unknown Sex and Gender Information Value Date Recorded Sex Assigned at Not on file 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
--- OUTSIDE RECORDS SUMMARY | 2025-04-13 19:30 | XMS_ITS | Continuity of Care Document ---
Author Organization [facility] Address [address] [place] [address] Phone Care Team Providers Care Flyer Maker Name Role Phone Mc PT, SRINIVASAT, Brooks Unavailable Unavailable Procedures Procedure Date Therapeutic Activities Manual Therapy Neuromuscular Re-Ed Therapeutic Activities Neuromuscular Re-Ed PT Evaluation Moderate Complexity Therapeutic Activities Neuromuscular Re-Ed Free Assessment Advance Directives Directive Yes / No Effective Date File Name No Information Encounters Encounter Description Practice Location Reason(s) For Visit Diagnoses Date Provider Providers Copied on Encounter [facility] [address], [place], [place], [id number], tel:[phone] [place] No Information 2 Mc Guy. . [facility], [place], [place], [id number], tel:[phone] [place] No Information 2 Mc Guy. . Referring Provider: Access Direct. [facility], [place], [place], [id number], tel:[phone] [place] No Information 2 Mc Guy. . Referring Provider: Access Direct. [facility], [place], [place], [address], tel:[phone] [place] No Information 2 Mc Guy. . Referring Provider: Access Direct. [place], [address], [place], [place], [address], [place] tel:[phone] [place] No Information 2 Mc Guy. . Referring Provider: Physician Screen. Family History Family Member Type Diagnosis Age At Onset No Information Payers Payer name Insurance type Covered republican ID Ana dunbar(s) [facility] [id number] Social History Type Description Quantity Date Captured [...]
--- NOTE | 2025-04-13 19:34 | WPDANESEPPF ---
Anes - Initial Pre Proc Eval Date/Time: 04/13/25 19:34 Surgeon: Edy Banks MD Pre Op Diagnosis: 04/06 tonsillectomy, bleeding to L side 30 min ago Patient Data Age: 29 Gender: F Height: 1.7 m Weight: 66.4 kg Last Vital Signs Temp 36.7 C 04/13/25 19:29 Pulse 89 04/13/25 19:29 Resp 16 04/13/25 19:29 BP 114/79 04/13/25 19:29 Pulse Ox 99 04/13/25 19:29 O2 Del Method Room Air 04/13/25 17:40 Allergies Allergy/AdvReac Type Severity Reaction Status Date / Time No Known Allergies Allergy Verified 04/13/25 17:47 Home Medications ?Medication ?Instructions ?Recorded ?Confirmed ?Type amoxicillin 875 mg tablet 875 mg PO Q12H #14 tabs 04/07/25 Rx ondansetron 4 mg disintegrating 4 mg PO Q8H #21 tabs 04/10/25 Rx tablet oxycodone 5 mg tablet 5 mg PO .q6-[id number] PRN pain #20 tabs 04/13/25 Rx Laboratory Tests 04/13/25 18:10 WBC 5.5 K/mm3 (4.5-10.0) RBC 4.34 M/mm3 (4.2-5.4) Hgb 12.4 g/dL (12.0-15.0) Hct 37.2 % (37.0-47.0) MCV 85.7 fl (80-100) MCH 28.6 pg (26-34) MCHC 33.3 g/dl (32-36) RDW 11.9 % (11.5-14.5) Plt Count 291 k/mm3 (150-375) MPV 9.6 fl (7.4-10.4) Immature Gran % (Auto) 0.5 % (0-0.5) Neut % (Auto) 59.8 % (45.5-73.1) Lymph % (Auto) 28.3 % (18.3-44.2) [place] % (Auto) 9.1 H % (2.6-8.5) Eos % (Auto) 1.8 % (0-4.4) Baso % (Auto) 0.5 % (0.2-1.2) Lymph # (Auto) 1.56 K/mm3 (0.9-3.2) [place] # (Auto) 0.5 K/mm3 (0.1-0.6) Eos # (Auto) 0.1 K/mm3 (0-0.3) Baso # (Auto) 0.0 K/mm3 (0.0-0.1) Abs Immat Gran (auto) 0.03 K/mm3 (0.00-0.031) Absolute Neuts (auto) 3.3 K/mm3 (1.3-6.7) Absolute Nucleated RBC 0.000 K/mm3 (0.0-0.012) Nucleated RBC % 0.0 % (0.0-0.2) Sodium 137 mmol/L (137-145) Potassium 3.4 mmol/L (3.4-5.0) Chloride 100 mmol/L (98-107) Carbon Dioxide 27 mmol/L (22-30) Anion Gap 10 mmol/L (4-12) BUN 9 mg/dL (7-17) Creatinine 0.55 L mg/dL (0.7-1.0) Estim Creat Clear Calc 125 ml/min Estimated GFR > 60 (59 - ) Glucose 107 mg/dL (65-110) Calcium 9.1 mg/dL (8.4-10.2) Total Bilirubin 0.3 mg/dL (0.2-1.3) AST 28 U/L (14-36) ALT 19 U/L (6-35) Alkaline Phosphatase 60 U/L (38-126) Total Protein 8.0 g/dL (6.3-8.2) Albumin 4.6 g/dL (3.5-5.1) Patient hx anesthesia problems: none Family hx anesthesia problems: none Results Review: All pre-operative results and documents have been reviewed as part of the pre-operative evaluation. [facility] Past Medical History Medical History Chronic tonsillitis Cryptic tonsil Headache, migraine Surgical History Surgical History (Updated 04/13/25 @ 19:34 by Baljeet Leon MD) Hx of tonsillectomy History of appendectomy Family History Family History Sibling Asthma Depression Grandparent Diabetes mellitus Social History Social History Social History: caffeine- coffee Smoking status: Never smoker Second hand tobacco smoke exposure: No Alcohol intake: never Substance use: never Substance use type: does not use Do You Feel Safe in your Home?: Yes Lack of Transportation: No Lack of Food: Never True Current Housing: I Have Housing Concerned About Future Housing: No Difficulty Paying Gas/Electric Bills: No Difficulty Paying for Meds: No Currently Unemployed: No Education: Master's Degree or Higher Difficulty w/ Childcare or Family Care: No Living arrangements: with family Additional living arrangements comments: with spouse Occupation/Education: occupation 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 Gender identity (if verbalized by the patient): Female Sexual Orientation (if Verbalized by the Patient): Straight or Heterosexual Spiritual care concerns: No Agree to blood products: No Anes - Eval Final PreProcedure Day of Procedure 04/13/25 19:34 Patient weight: normal Heart: regular rate and rhythm Lungs: clear to auscultation Airway: Mallampati scale class II Neurological: alert and oriented Last oral intake: 2 hours ASA classification: II Emergent: yes Anesthetic plan: proceed Anesthesia type and monitoring: general ETT and standard monitoring Results Review: All pre-operative results and documents have been reviewed as part of the pre-operative evaluation. Informed Consent: The patient's anesthetic plan and its attendant risks and benefits were discussed with the patient/family/POA. Questions were solicited and answers provided to the satisfaction of the patient/family/POA.
--- NOTE | 2025-04-13 19:43 | WPDHPUPDATE1 ---
History and Physical Update Update Date/Time: 04/13/25 19:43 History and Physical has been reviewed, including an updated exam of the patient. There are NO changes in the patient's condition. Risks, benefits, and alternatives have been discussed and questions answered. Patient agrees to proceed with procedure. Control of POD 7 tonsillectomy hemorrhage
[2025-04-13] MEDS: OXYMETAZOLINE HCL 0.05% NAS 15 ML BTL (*BKC) 1 SPRAY NASAL (20:05)
[2025-04-13] MEDS: LACTATED RINGERS 1,000 ML 30 ML IV CONT (20:19)
--- NOTE | 2025-04-13 20:29 | W.PM.PROC2 ---
Procedure Note - Detailed Date of Procedure 04/13/25 Pre-op Diagnosis Post tonsillectomy hemorrhage Post-op Diagnosis Same Procedure Performed Control of hemorrhage Surgeon Edy Banks MD Anesthesia General Indications See above Findings Left inferior base sidewall vessel Description of Procedure Patient identified consent verified the preoperative holding area. Patient brought to the operating. Time-out performed. General anesthesia induced endotracheal tube secured. Patient prepped draped position procedure confirmed 2nd time-out performed. McIvor mouth gag inserted open left clot suctioned out no active bleeding however anterior inferiorly good CS sidewall vessels the clot was suctioned off this bleeding ensued easily controlled with application of a tonsil sponge with Afrin. This was then cauterized 3 times for about 2 seconds each time at a setting of 15 with the Bovie suction coagulation device all the bleeding was controlled. Oral cavity suctioned out, the suction was stomach was also suctioned. Small amount of blood gastric contents removed. McIvor mouth gag removed patient tolerated procedure well total blood loss about 3 cc. I performed all dictated portions of procedure. Care the patient back Anesthesiology. Estimated Blood Loss 3 Drains No Packing No Pathology None sent Complications No immediate complications Condition Stable Disposition PACU [facility] Billing Surgery - Charge Forward: Surgery Billing
[2025-04-13] MEDS: ONDANSETRON INJ 4 MG/2 ML VIAL IV PUSH (21:15)
[2025-04-13] MEDS: oxyCODONE HCL (*CRX) 5 MG TAB IR PO (21:15)
== END 2025-04-13 21:38 | disposition home or self-care (01) ==
LOC: ANHED 18:24 → ANHSURGERY 19:28
PROVIDERS: Emergency Provider Emergency Medicine; Visit Provider Otolaryngology
PROC: (CPT 42960; principal; 2025-04-13 20:00)
DX: J95.830 Postprocedural hemorrhage of a respiratory system organ or structure following a respiratory system procedure (principal); J35.01 Chronic tonsillitis; Z79.891 Long term (current) use of opiate analgesic; Z98.890 Other specified postprocedural states
CPT/HCPCS: 42960; 36415; 80053; 85025; 99285; A9270; J0330; J2003; J2250; J2405; J2704; J3010; J7120